=== PATIENT | male | born 1935 | race Caucasian/White ===

== ENCOUNTER 2017-07-31 15:48 | Inpatient (IN) | payer OTHER ==
--- NOTE | 2017-07-31 16:08 | CPEKG ---
Heart Rate: 161 RR Interval: 373 QRSD Interval: 76 QT Interval: 304 QTC Interval: 498 QRS Bourbon: 2 T Wave Bourbon: 69 EKG Severity - ABNORMAL ECG - EKG Impression: ATRIAL FIBRILLATION WITH RAPID V-RATE EKG Impression: LOW VOLTAGE IN FRONTAL LEADS EKG Impression: CONSIDER ANTEROSEPTAL INFARCT EKG Impression: BORDERLINE T ABNORMALITIES, LATERAL LEADS Electronically Signed By: Matt Bowen 31-Jul-2017 16:10:56
[2017-07-31] MEDS ORDERED: DILTIAZEM 125 MG in D5W 125 ML IV ONE (16:09)
[2017-07-31] MEDS ORDERED: ENOXAPARIN 80 MG/0.8 ML SYR SC ONE (16:09)
--- NOTE | 2017-07-31 16:09 | EDPHY ---
H & P Time Seen by Provider: 07/31/17 16:00 HPI/ROS: CHIEF COMPLAINT: Rapid atrial fibrillation HISTORY OF PRESENT ILLNESS: Patient tells me is atrial fibrillation for more than 20 years and takes metoprolol but does not have any anticoagulants. He was at Dr. Burroughs's office today for routine checkup and was noted to be in atrial fibrillation was sent here. Does not have chest pain or palpitations. No dizziness or lightheadedness. He said he was a little bit of short of breath walking from the car to the emergency department. REVIEW OF SYSTEMS: Eye: no change in vision ENT: no sore throat Cardiac: no chest pain or syncope Pulmonary: Not coughing. Abdomen: no vomiting, diarrhea, abdominal pain Musculoskeletal: no back pain , mild bilateral leg swelling Skin: no rash Neuro: no headache Constitutional: no fever : no urinary symptoms A comprehensive 10 point review of systems is otherwise negative aside from elements mentioned in the history of present illness. 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 Eyes: No scleral icterus. ENT, Mouth: Normal mucous membranes. Respiratory: Normal respiratory effort, breath sounds equal, lungs are clear to auscultation. Cardiovascular: Irregularly irregular and tachycardic Gastrointestinal: Abdomen is soft and non tender. Neurological: Alert, face symmetric, normal motor and sensory in extremities. Skin: Warm and dry, no rashes. Musculoskeletal: Mild bilateral peripheral edema. No calf tenderness. Psychiatric: Not agitated. Emergency Department course/MDM: Patient presents in relatively asymptomatic atrial fibrillation with rapid response at 160. Lovenox discussed and consented. IV diltiazem drip started. I do not think he is necessarily candidate for ED conversion as he does not know when he went into it. 1648: Heart rate in the 140's on diltiazem drip, troponin is 0.040, admit for rate control and cycle troponins. 1753: Still on diltiazem drip at 10, heart rate still in the 150s. Smoking Status: Never smoked Constitutional: Initial Vital Signs Temperature (C) 36.9 C 07/31/17 15:53 Heart Rate 165 H 07/31/17 15:53 Respiratory Rate 20 07/31/17 15:53 Blood Pressure 100/81 H 07/31/17 15:53 O2 Sat (%) 94 07/31/17 15:53 O2 Delivery Mode Room Air Allergies/Adverse Reactions: Penicillins Allergy (Verified 07/31/17 15:53) Home Medications: Medication Instructions Recorded Amphet Asp and D/Amphet [Adderall 10 mg PO BID@1200,1600 07/31/17 10 MG (*)] Amphet Asp and D/Amphet [Adderall 20 mg PO DAILY 07/31/17 10 MG (*)] Aspirin EC [Aspirin EC 81 mg (*)] 81 mg PO DAILY 07/31/17 Carbidopa/Levodopa 2 each PO HS 07/31/17 [Carbidopa-Levodopa 25-100 Tab] Metoprolol Succinate Xr [Toprol Xl 100 mg PO DAILY 07/31/17 100 mg (*)] Mirtazapine 15 mg PO HS 07/31/17 Rosuvastatin Calcium [Crestor 20mg 20 mg PO DAILY 07/31/17 (*)] Venlafaxine Xr [Effexor Xr] 300 mg PO DAILY 07/31/17 Zaleplon [ZALEPLON] 5 mg PO HS 07/31/17 oxyCODONE HCL/ACETAMINOPHEN 1 each PO HS PRN 07/31/17 [Percocet 7.5-325 mg Tablet] Medical Decision Making - Diagnostics Imaging Results: Imaging Impressions Chest X-Ray 07/31/17 16:09 Impression: 1. No active cardiopulmonary disease seen. 2. A few fibrotic streaks are noted at the lung bases. Differential Diagnosis: Differential diagnosis considered for narrow complex tachycardia including but not limited to various causes of sinus tachycardia, SVT, atrial flutter and atrial fibrillation. Consult/Admit Bed Type: [place] [address] Critical Care Time: Critical care time spent by me, Dr. Bowen, exclusively with the care of this patient was 30 minutes, exclusive of PA or [employer]BLER time and exclusive of separate procedures. The organ system at risk was cardiovascular and I ordered IV diltiazem, multiple diagnostics, fluid bolus, and anticoagulation to stabilize the patient and prevent worsening of the patient's condition. - Data Points Laboratory Results: Laboratory Results 07/31/17 16:11 07/31/17 16:11 07/31/17 07/31/17 16:11 16:11 WBC 6.69 10^3/uL 10^3/uL (3.80-9.50) RBC 5.50 10^6/uL 10^6/uL (4.40-6.38) Hgb 16.5 g/dL g/dL (13.7-17.5) Hct 50.3 % % (40.0-51.0) MCV 91.5 fL fL (81.5-99.8) MCH 30.0 pg pg (27.9-34.1) MCHC 32.8 g/dL g/dL (32.4-36.7) RDW 15.1 % % (11.5-15.2) Plt Count 219 10^3/uL 10^3/uL (150-400) MPV 10.4 fL fL (8.7-11.7) Neut % (Auto) 64.1 % % (39.3-74.2) Lymph % (Auto) 22.0 % % (15.0-45.0) [place]rens % (Auto) 8.7 % % (4.5-13.0) Eos % (Auto) 4.2 % % (0.6-7.6) Baso % (Auto) 0.6 % % (0.3-1.7) Nucleat RBC Rel Count 0.0 % % (0.0-0.2) Absolute Neuts (auto) 4.29 10^3/uL 10^3/uL (1.70-6.50) Absolute Lymphs (auto) 1.47 10^3/uL 10^3/uL (1.00-3.00) Absolute Monos (auto) 0.58 10^3/uL 10^3/uL (0.30-0.80) Absolute Eos (auto) 0.28 10^3/uL 10^3/uL (0.03-0.40) Absolute Basos (auto) 0.04 10^3/uL 10^3/uL (0.02-0.10) Absolute Nucleated RBC 0.00 10^3/uL 10^3/uL (0-0.01) Immature Gran % 0.4 % % (0.0-1.1) Immature Gran # 0.03 10^3/uL 10^3/uL (0.00-0.10) Sodium 140 mEq/L mEq/L (135-145) Potassium 3.9 mEq/L mEq/L (3.5-5.2) Chloride 105 mEq/L mEq/L (97-110) Carbon Dioxide 23 mEq/l mEq/l (22-31) Anion Gap 12 mEq/L mEq/L (8-16) BUN 37 mg/dL H mg/dL (7-23) Creatinine 1.2 mg/dL mg/dL (0.7-1.3) Estimated GFR 58 Glucose 131 mg/dL H mg/dL (70-100) Calcium 9.5 mg/dL mg/dL (8.5-10.4) Troponin I 0.040 ng/mL H ng/mL (0.000-0.034) Medications Given: Discontinued Medications Enoxaparin Sodium (Lovenox) 80 mg SC EDNOW ONE Stop: 07/31/17 16:10 Last Admin: 07/31/17 16:31 Dose: 80 mg Diltiazem HCl 125 mg/ Dextrose 125 mls @ 0 mls/hr IV EDNOW ONE; As Directed PRN Reason: Protocol Stop: 07/31/17 16:10 Last Admin: 07/31/17 16:36 Dose: 125 mls Sodium Chloride (Ns) 500 mls @ 0 mls/hr IV EDNOW ONE; Wide Open PRN Reason: Protocol Stop: 07/31/17 16:13 Last Admin: 07/31/17 16:37 Dose: 500 mls Departure - Departure Disposition: [facility] Acute Clinical Impression: Atrial fibrillation Qualifiers: Atrial fibrillation type: unspecified Qualified Code(s): I48.91 - Unspecified atrial fibrillation Condition: Good
[2017-07-31] MEDS ORDERED: NS 500 ML IV ONE (16:12)
[2017-07-31 16:18] LABS: PLATELET COUNT 219 10^3/uL (150-400)
[2017-07-31] MEDS ORDERED: ACETAMINOPHEN 325 MG TAB PO PRN (17:45)
[2017-07-31] MEDS ORDERED: ONDANSETRON DISINTEGRATING 4 MG TAB PO PRN (17:45)
[2017-07-31] MEDS ORDERED: ONDANSETRON 4 MG/2 ML VIAL IVP PRN (17:45)
[2017-07-31] MEDS ORDERED: NON-FORMULARY NEW DRUG (Oxycodone Hcl/Acetaminophen [Percocet 7.5-325 Mg Tablet] 1 EACH) PO PRN (17:47)
[2017-07-31] MEDS ORDERED: DILTIAZEM 125 MG in D5W 125 ML IV SCH (18:00)
--- NOTE | 2017-07-31 18:31 | GHP ---
[f rep st] HISTORY AND PHYSICAL DATE OF ADMISSION: 07/31/2017 HISTORY OF PRESENT ILLNESS: The patient is a pleasant 81-year-old gentleman with history of atrial f ibrillation and ADHD who went to his primary care physician for medication refill which included Topr ol-XL. At that point, he was found to have a heart rate of 130 and referred to the emergency departm ent. The patient denies chest pain, palpitations, and shortness of breath. He has some lower extrem ity edema that is chronic. He feels it is a bit worse. He has not been orthopneic. He gets dyspnei c on exertion but perhaps no worse than usual. 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 He does take Adderall 3 times daily. I think he has been on this for a bit of time. He drinks alcoh ol daily, unclear if it is to excess. No fever or chills. No sputum. No nausea, vomiting, diarrhea. No chest pain. REVIEW OF SYSTEMS: Complete 10-point review of systems conducted, negative except as noted in the HP I. PAST MEDICAL HISTORY: 1. ADHD. 2. Atrial fibrillation. 3. Likely parkinsonism. 4. Depression. 5. Pain. 6. Hyperlipidemia. ALLERGIES: Penicillin. MEDICATIONS: Adderall 10 at noon and 4 p.m. and 20 mg in the morning. Toprol-XL 100, enteric-coated aspirin, carbidopa-levodopa 2 tabs at night, mirtazapine, Percocet, rosuvastatin, venlafaxine, zalep diamond. 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 Daily alcohol. Nonsmoker. FAMILY HISTORY: Parents . PHYSICAL EXAMINATION: VITAL SIGNS: Temp 37, blood pressure 100/81, pulse 165, breathing 20 times a minute, 94% on room air. GENERAL: No acute distress. HEENT: Sclerae anicteric. Oropharynx clear. Mucous membranes moist. NECK: Supple. No lymphadenopathy or JVD. LUNGS: Clear to auscultation bilaterally. HEART: S1, S2. Tachycardic. Irregularly irregular. ABDOMEN: Soft, nontender, nondistended. EXTREMITIES: Lower extremities showed 2+ edema bilaterally. Calves are nontender. SKIN: Without rash. NEUROLOGIC: Grossly nonfocal. LABORATORY DATA: Sodium 140, potassium 3.9, chloride 105, bicarb 22, BUN 37, creatinine 1.2, glucose 131. Troponin 0.040. White count 6.7, hematocrit 50, platelets 219,000. Chest x-ray, interpreted by me, shows no acute cardiopulmonary disease. EKG shows atrial fibrillatio n at 161 with normal axis and intervals. No ST or T-wave changes. I have discussed the case with Dr Shanelle Bowen. ASSESSMENT AND PLAN: An 81-year-old gentleman who presents with asymptomatic rapid atrial fibrillati on. 1. Atrial fibrillation. I suspect he has been rapid for a period of time given his increasing lower extremity edema, dyspnea on exertion, and asymptomatic nature. I will give him Toprol-XL 150 now an d continue him on a diltiazem drip. We will check an echocardiogram. We will have Cardiology see hi m in the morning. 2. Adderall therapy. I wonder if this is contraindicated in his atrial fibrillation. I will hold i t now. 3. Alcohol use. The patient does appear to be in withdrawal. I think he probably has moderate yanni y alcohol use. 4. Hyperlipidemia. Continue statin. DISPOSITION: Observation status. /[id number]/MODL
[2017-07-31] MEDS ORDERED: OXYCODONE/APAP 5/325 TAB PO PRN (18:41)
[2017-07-31] MEDS: CARBIDOPA/LEVODOPA 25 MG/100 MG TAB PO SCH (20:14)
[2017-07-31] MEDS: MIRTAZAPINE 15 MG TAB PO SCH (20:14)
[2017-07-31] MEDS: METOPROLOL SUCCINATE XR 100 MG TAB PO SCH (20:26)
[2017-07-31] MEDS ORDERED: NON-FORMULARY NEW DRUG (Mirtazapine [Mirtazapine] 15 MG) PO SCH (21:00)
[2017-07-31] MEDS ORDERED: ZALEPLON 5 MG PO SCH (21:00)
[2017-07-31] MEDS: TEMAZEPAM 15 MG CAP PO SCH (22:33)
[2017-08-01] MEDS ORDERED: ENOXAPARIN 80 MG/0.8 ML SYR SC SCH (07:00)
[2017-08-01] MEDS: METOPROLOL SUCCINATE XR 100 MG TAB PO SCH (08:52)
[2017-08-01] MEDS: VENLAFAXINE XR 150 MG CAP PO SCH (08:53)
[2017-08-01] MEDS: ROSUVASTATIN CALCIUM 20 MG TAB PO SCH (08:54)
[2017-08-01] MEDS: ASPIRIN EC 81 MG TAB PO SCH (08:54)
[2017-08-01] MEDS: OXYCODONE/APAP 5/325 TAB PO PRN ×3 (09:17→20:54)
--- NOTE | 2017-08-01 10:37 | ASMTCASEMG ---
Living Arrangements What is your living Answers: With Other (Not Family) arrangement? Who do you live with? Type Of Residence What kind of residence do Answers: House you live in? Discharge Plan Comments Coordination Status Comments Notes: Pt is a 81 y/o man admitted for Afib and ADHD. Pt drinks daily and takes adderall 3x/day. Pt will have an echo at some point. Pt will most likely d/c independent when medically stable. No therapies ordered at this time. CM available for changes. Plan: Independent Date Signed: 08/01/2017 10:36 AM Electronically Signed By:MICHELLE Couch
--- NOTE | 2017-08-01 10:41 | ECHO ---
[email or web address] [address] [address] Main: [phone] Fax: Transthoracic Echocardiogram Name: VINNIE SWIFT MR#: [id number] Study Date: 08/01/2017 Study Time: 07:17 AM Date of : 1935 Age: 81 year(s) Height: 182.9 cm (72 in.) Weight: 88.91 kg (196 lb.) BSA: 2.11 m2 Gender: Male Examination: Echo Indication: New onset A-fib Image Quality: Contrast: Requested by: Chacho Spring BP: 122 mmHg/98 mmHg Heart Rate: Rhythm: Atrial fibrillation Indication: New onset A-fib Procedure Staff Environmental Epidemiologist: Corona Romero RDCS Reading Physician: Анан Araujo MD Requesting Provider: Chacho Spring Conclusions: Moderately to severely dilated left ventricle. No LV hypertrophy. Severely reduced systolic LV function. The ejection fraction is estimated to be 15-20 %. There is moderate to severe global hypokinesis. The rhythm is atrial fibrillation. Normal size right ventricle. Normal RV function. The left atrium is severely dilated. The right atrium is severely dilated. Mild to moderate mitral regurgitation. Mild aortic valve regurgitation is present. Mild to moderate tricuspid valve regurgitation. The pulmonary artery pressure is normal. No prior echo Measurements: Chambers Valvular Assessment AV/MV Valvular Assessment TV/PV Normal Normal Normal Name Value Range Name Value Range Name Value Range Ao Samara (MM): 3.9 cm (2.2 cm-3.7 AV Vmax: 1.21 m/s (1 m/s-1.7 TR Vmax: 2.81 mm/s ( - ) cm) m/s) TR PGmax: 32 mmHg ( - ) IVSd (2D): 0.8 cm (0.6 cm-1.1 AV maxP mmHg ( - ) syst. PAP: 37 mmHg ( - ) cm) LVOT Vmax: 0.56 m/s (0.7 m/s-1.1 LVDd (2D): 6.2 cm (4.2 cm-5.9 m/s) cm) AR (PHT): 773 ms ( - ) LVDs (2D): 5.4 cm (2.1 cm-4 MV E Vmax: 0.70 m/s ( - ) cm) LVPWd (2D): 1.1 cm (0.6 cm-1 cm) LVEF (BP): 19 % (>=55 %) Patient: VINNIE SWIFT Study Date: 08/01/2017 Page 1 of 2 07:17 AM EF Range: 15-20 % Continued Measurements: Chambers Valvular Assessment AV/MV Valvular Assessment TV/PV Name Value Name Value Name Value LADs Lon.0 cm MV E' Septal: 0.05 m/s CVP (est.): 5 mmHg LA Area: 27.3 cm2 MV E/E' Septal: 13.30 LA Volume: 99 ml AR Vmax: 2.85 cm/s LA Volume Index: 46.9 ml/m2 Findings: Left Ventricle: Moderately to severely dilated left ventricle. No LV hypertrophy. Severely reduced systolic LV function. The ejection fraction is estimated to be 15-20 %. Diastolic dysfunction is present. . There is moderate to severe global hypokinesis. The rhythm is atrial fibrillation. Right Ventricle: Normal size right ventricle. Normal RV function. Left Atrium: The left atrium is severely dilated. Right Atrium: The right atrium is severely dilated. Mitral Valve: The mitral valve is normal in appearance. Mild to moderate mitral regurgitation. Aortic Valve: Mild aortic cusp calcification is noted. No aortic valve stenosis is present. Mild aortic valve regurgitation is present. Tricuspid Valve: The tricuspid valve appears normal. Mild to moderate tricuspid valve regurgitation. The pulmonary artery pressure is normal. Right heart pulmonary pressure may be underestimated due to low heart function.. Pulmonic Valve: The pulmonic valve is normal in appearance and function. Aorta: The aorta is normal. Pericardium: No pericardial effusion. No echocardiographic evidence of hemodynamic compromise. (No Signature Object) Patient: VINNIE SWIFT Study Date: 08/01/2017 Page 2 of 2 07:17 AM [id number]
[2017-08-01] MEDS: LISINOPRIL 2.5 MG TAB PO SCH (11:14)
[2017-08-01] MEDS ORDERED: NS 1,000 ML IV ONE (11:55)
[2017-08-01] MEDS ORDERED: ATROPINE SULFATE 1 MG/10 ML SYR IVP ONE (11:55)
[2017-08-01] MEDS ORDERED: APIXABAN 5 MG TAB PO SCH (12:00)
[2017-08-01 13:39] LABS: INR 1.18 (0.83-1.16); PROTIME(PATIENT) 15.2 SEC (12.0-15.0)
--- NOTE | 2017-08-01 13:42 | HOSPPROG ---
Hospitalist Progress Note Assessment/Plan: * Rapid afib -to KATELYN/cardioversion today - d/w Dr. Gayle De La Vega started -continue metoprolol * Acute systolic CHF - EF 15% -likely due to rapid rates -consider non-invasive ischemic eval -IV lasix -starting lisinopril * CAD/distant stent * ADHD -Adderall * Parkinson's -Sinemet * Chronic LBP with continuous narcotic dependency -Percocet 4x day Subjective: No new complaints. Objective: Vital Signs Temp Pulse Resp BP Pulse Ox 36.4 C 78 14 99/66 L 97 08/01/17 11:20 08/01/17 11:20 08/01/17 11:20 08/01/17 11:20 08/01/17 11:20 07/31/17 08/01/17 08/02/17 05:59 05:59 05:59 Intake Total 100 Balance 100 ECHO - EF 15% Laboratory Tests 07/31/17 07/31/17 07/31/17 16:11 19:12 23:18 Creatinine Troponin I 0.040 H 0.038 H 0.034 TSH 08/01/17 04:00 Creatinine 1.1 Troponin I TSH 1.490 CXR - negative - Physical Exam Constitutional: no apparent distress, appears nourished, not in pain Cardiovascular: regular rate and rhythym, tachycardia, edema (1+) Respiratory: no respiratory distress, no rales or rhonchi, clear to auscultation Gastrointestinal: normoactive bowel sounds, soft, non-tender abdomen, no palpable masses Skin: no rashes or abrasions, no fluctuance, no induration Neurologic: AAOx3, sensation intact bilaterally Psychiatric: interacting appropriately, not anxious, not encephalopathic, thought process linear ICD10 Worksheet Patient Problems: Problems Problem Status Onset Atrial fibrillation Acute
--- NOTE | 2017-08-01 13:59 | GCON ---
[f rep st] CONSULTATION CARDIOLOGY CONSULTATION DATE OF CONSULTATION: 08/01/2017 PRIMARY MANAGER ER: Dr. Ethel Perez at the [facility]. CHIEF COMPLAINT: Atrial fibrillation and heart failure. HISTORY OF PRESENT ILLNESS: We were asked by Dr. English, to visit with this patient. The patient is an 81-year-old male with a history of allegedly paroxysmal atrial fibrillation. He has not been on a nticoagulation therapy due to perceived fall risk. He has a remote history of stenting to the LAD, b ack in 2005. I spent quite a bit of time reviewing his past records and discussing his history with Dr. Sanchez's nurse, as we do not have any records in our system since 2011. Other history includes parkinsonism and chronic renal insufficiency. The patient was sent from Dr. Sanchez's office yesterday to the ER with atrial fibrillation and rapi d ventricular response. He was admitted to the medicine service. He was initially started on a dilt iazem drip, but I discontinued that when his ejection fraction showed 10%. He is already on oral met oprolol as an outpatient. Upon my evaluation, reports feeling dyspneic, especially with lying down and exertion, for the past s everal months. He also reports a year of bilateral lower extremity edema that is mild. He has not h ad angina. He has not had syncope. He does not particularly notice palpitations. He has never been told that he has heart failure. He denies any major bleeding history and reports that he has not fa llen at home. REVIEW OF SYSTEMS: He is having sciatic pain. Otherwise, a full 10-point review of systems was perf ormed and was negative except that which is outlined in the history of present illness. ALLERGIES: Penicillin. PAST MEDICAL HISTORY: 1. Atrial fibrillation. 2. New diagnosis of cardiomyopathy. 3. Chronic renal insufficiency. 4. Coronary disease with a remote history of LAD PCI. 5. Parkinsonism. 6. Dyslipidemia. 7. Attention deficit hyperactivity disorder. 8. Depression. SURGICAL HISTORY: 1. Lumbar laminectomy. 2. Bilateral total knee replacement. OUTPATIENT MEDICATIONS: Toprol-XL 100 mg daily, Adderall, aspirin 81 mg daily, Sinemet, Remeron, per cocet, Crestor 20 mg daily, Effexor, and Zaleplon. SOCIAL HISTORY: The patient lives alone, but the woman who owns the house lives upstairs. He report s that he has an ex-, but that "all his children are ." He does not smoke cigarettes. He dr inks 1-2 alcoholic beverages weekly. FAMILY HISTORY: Not applicable to the current case. PHYSICAL EXAM: VITAL SIGNS: Blood pressure 99/66, heart rate is 78 and controlled atrial fibrillati on. Oxygen saturation 97% on 2 L nasal cannula. He is afebrile. GENERAL: Older, slightly ill-appe aring male in no acute distress. HEENT: Sclerae are clear. No jaundice. Mucous membranes are mois t. CARDIOVASCULAR: JVP is 12 cm of water with the patient sitting at 90 degrees. Carotids equal an d 2+ without bruit, irregularly irregular rhythm. Soft early systolic murmur at the apex. Soft lauren y systolic murmur at the left lower sternal border. No S3. No rub. LUNGS: Minimal bibasilar rales . No wheezes or rhonchi. ABDOMEN: Soft, nontender, nondistended, without bruits, masses, or hepato splenomegaly. EXTREMITIES: Warm and well perfused with trace bilateral ankle edema. NEURO: Alert and oriented x3 without gross focal neurologic deficits. Appropriate mood and affect. LABORATORY DATA: CBC is normal. Basic metabolic panel is normal except for a BUN of 35. Creatinine is 1.1, glucose 112. His initial troponin was 0.04, 0.038, and then a 3rd troponin was normal at 0. 034. BNP is 4220. TSH is normal at 1.49. EKG reviewed by me shows atrial fibrillation with rapid ventricular response at 161 beats per minute. Lateral T-wave flattening to slight inversion. Echocardiogram reviewed by me: The LV is moderatel y to severely dilated. The left ventricular ejection fraction is severely depressed at 15% to 20% wi th global hypokinesis. Severe biatrial dilation. Uhlp-vo-vhlheaem mitral regurgitation. Mild aorti c regurgitation. [id number] tricuspid regurgitation with normal estimated pulmonary pressure. Chest x-ray reviewed by me shows no acute cardiopulmonary process. ASSESSMENT AND PLAN: This is an 81-year-old male with past history of paroxysmal atrial fibrillation , now presents with atrial fibrillation, rapid ventricular response, systolic heart failure that is l ikely an acute on chronic issue. 1. Atrial fibrillation: It is likely that much of his heart failure is driven by poorly controlled atrial fibrillation. I had a long discussion with the patient about the risks, benefits, alternative s of KATELYN-guided cardioversion today. I also explained that he would require at least 4 weeks of unin terrupted systemic anticoagulation with Eliquis post cardioversion. He understands this and agrees t o proceed. This will be scheduled for later today. Continue Toprol. The diltiazem has been stopped , and is not an ideal medication for him given his LV systolic dysfunction. TSH is normal. We will initiate Eliquis 5 mg b.i.d. 2. Cardiomyopathy: Acute on chronic systolic heart failure. He appears mildly volume overloaded. We will start IV Lasix. I have added low-dose DHRUV inhibitor as well. Continue his Toprol. 3. History of coronary disease: He has not had angina. His troponin was only minimally elevated, m ore likely due to demand ischemia in the setting of his rapid atrial fibrillation and not an acute co ronary syndrome. He could have further risk stratification with an outpatient nuclear stress test, b ut at this point, I would not pursue coronary angiogram. 4. Dyslipidemia: Continue Crestor. 5. History of chronic renal insufficiency: Creatinine 1.1 here. Follow closely, especially in the setting of diuresis. 6. Parkinsonism and possible fall risk: He reports no falls at home. He will have a PT assessment. Again, we need to be careful with this in the setting of anticoagulation. Thank you for allowing us to participate in this patient's care. We will follow with you. /[id number]/MODL
--- NOTE | 2017-08-01 14:13 | CPEKG ---
Heart Rate: 93 RR Interval: 645 QRSD Interval: 86 QT Interval: 368 QTC Interval: 458 QRS Kirkland: 62 T Wave [place]: 48 EKG Severity - ABNORMAL ECG - EKG Impression: ATRIAL FIBRILLATION EKG Impression: CONSIDER ANTEROSEPTAL INFARCT EKG Impression: BORDERLINE T ABNORMALITIES, LATERAL LEADS Electronically Signed By: Harshal Lewis 01-Aug-2017 17:01:50
--- NOTE | 2017-08-01 15:06 | PDANEPAE ---
ANE History of Present Illness 81 yo for eugene/cv ANE Past Medical History - Cardiovascular History Hx Hypertension: Yes Hx Arrhythmias: Yes Hx Coronary Artery / Peripheral Vascular Disease: Yes Hx CHF / Valvular Disease: Yes - Pulmonary History Hx Oxygen in Use at Home: Yes O2 in Use at Home (L/minute): 2 Hx Sleep Apnea: No - Endocrine History Hx Diabetes: No - Chronic Pain History Chronic Pain: Yes ANE Review of Systems Review of Systems: - Exercise capacity METS (RN): 1 METS ANE Patient History - Allergies Allergies/Adverse Reactions: Penicillins Allergy (Verified 07/31/17 15:53) - Home Medications Home medications: home medication list seen and reviewed Home Medications: Amphet Asp and D/Amphet [Adderall 10 MG (*)] 10 mg PO BID@1200,1600 07/31/17 [ Last Taken 07/30/17] Amphet Asp and D/Amphet [Adderall 10 MG (*)] 20 mg PO DAILY 07/31/17 [Last Taken 07/30/17] Aspirin EC [Aspirin EC 81 mg (*)] 81 mg PO DAILY 07/31/17 [Last Taken 07/30/17] Carbidopa/Levodopa [Carbidopa-Levodopa 25-100 Tab] 2 each PO HS 07/31/17 [Last Taken 07/30/17] Metoprolol Succinate Xr [Toprol Xl 100 mg (*)] 100 mg PO DAILY 07/31/17 [Last Taken 07/30/17] Mirtazapine 15 mg PO HS 07/31/17 [Last Taken 07/30/17] Rosuvastatin Calcium [Crestor 20mg (*)] 20 mg PO DAILY 07/31/17 [Last Taken ] Venlafaxine Xr [Effexor Xr] 300 mg PO DAILY 07/31/17 [Last Taken 07/30/17] Zaleplon [ZALEPLON] 5 mg PO HS 07/31/17 [Last Taken 07/30/17] oxyCODONE HCL/ACETAMINOPHEN [Percocet 7.5-325 mg Tablet] 1 each PO QID PRN 07/31 [Last Taken 07/30/17] - Smoking Hx Smoking Status: Former smoker ANE Labs/Vital Signs - Labs Result Diagrams: 07/31/17 16:11 08/01/17 12:31 - Vital Signs Blood Pressure: 99/66 Heart Rate: 78 Respiratory Rate: 14 O2 Sat (%): 97 Height: 6 ft Weight: 89.8 kg ANE Physical Exam - Airway Neck exam: FROM Mallampati Score: Class 2 Mouth exam: normal dental/mouth exam, millan - Pulmonary Pulmonary: no respiratory distress, inspiratory crackles - Cardiovascular Cardiovascular: irregularly irregular ANE Anesthesia Plan Anesthesia Plan: MAC
--- NOTE | 2017-08-01 15:27 | PDMN ---
Medical Necessity Medical necessity: change to IP; los>2mn for rapid afib, and acute systolic CHF ; requires KATELYN/CV, initiate Eliquis and Lisinopril, IV Lasix; comorbid CAD/ stents, ADHD, Parkinson's and chronic LBP on narcotics; per order and progress note 08/01/17
[2017-08-01] MEDS ORDERED: PROPOFOL 200 MG/20 ML VIAL ONE (15:37)
--- NOTE | 2017-08-01 15:41 | PDHPUP ---
History & Physical Update H&P update statement: This history and physical update is based on an assessment of the patient which was completed after admission or registration (within 24 hours), but prior to the surgery/procedure. H&P update: H&P reviewed & patient examined, no change in patient's condition since H&P completed
[2017-08-01] MEDS ORDERED: ATROPINE SULFATE 1 MG/10 ML SYR ONE (15:49)
--- NOTE | 2017-08-01 15:56 | ASMTCMCOM ---
CM Note CM Note Notes: Pts case discussed in morning rounds. Dr. Araujo had concerns regarding pts ability to d/c home. Therapies have been ordered and awaiting recommendations. Needs are TBD at this time. CM to follow. Plan: TBD Date Signed: 08/01/2017 03:55 PM Electronically Signed By:MICHELLE Couch
--- NOTE | 2017-08-01 16:17 | POSTANESTH ---
Post Anesthetic Evaluation Cardiovascular Status: Normal, Stable Respiratory Status: Normal, Stable Level of Consciousness/Mental Status: Can Participate in Eval Pain Control: Adequate, Prn Tx Ordered Nausea/Vomiting Control: Adequate, Prn Tx Ordered Complications Possibly Related to Anesthesia: None Noted
[2017-08-01] MEDS: FUROSEMIDE 40 MG/4 ML VIAL IVP SCH ×2 (17:06→17:30)
[2017-08-01] MEDS: ADDERALL 10 MG TAB PO SCH (17:07)
--- NOTE | 2017-08-01 17:36 | ECHO ---
[email or web address] [address] Main: [phone] Fax: Transesophageal Echocardiography Name: VINNIE SWIFT MR#: [id number] Study Date: 08/01/2017 Study Time: 02:59 PM Date of : 1935 Age: 81 year(s) Height: ( ) Weight: ( ) BSA: Gender: Male Examination: KATELYN Indication: r/o clot pre cardioversion Image Quality: Contrast: I.V. dose of agitated saline Requested by: Анна Araujo Heart Rate: Rhythm: BP: / Procedure Staff Engineering Department Chair: Yessica Arias [facility] Reading Physician: Анна Araujo MD Requesting Provider: KATELYN Exam Details Contrast: I.V. dose of agitated saline Conclusions: Moderately dilated left ventricle. Severely reduced systolic LV function. The ejection fraction is estimated to be 5-10 %. No thrombus in left ventricle. Moderately dilated right ventricle. Severely reduced RV function. The left atrium is severely dilated. An agitated saline study was performed and was negative for intracardiac shunting. Possible thrombus in left appendage. Possible mural thrombus along the posterior wall of RA near RAA. Mild to moderate mitral regurgitation. Mild aortic valve regurgitation is present. Moderate tricuspid regurgitation is present. Measurements: Chambers Valvular Assessment AV/MV Valvular Assessment TV/PV Normal Normal Normal Name Value Range Name Value Range Name Value Range EF Range: 5-10 % TR Vmax: 2.19 mm/s ( - ) TR PGmax: 19 mmHg ( - ) Additional Measurements: Patient: VNINIE SWIFT Study Date: 08/01/2017 Page 1 of 2 02:59 PM Findings: Left Ventricle: Moderately dilated left ventricle. Severely reduced systolic LV function. The ejection fraction is estimated to be 5-10 %. No thrombus in left ventricle. Right Ventricle: Moderately dilated right ventricle. Severely reduced RV function. Left Atrium: The left atrium is severely dilated. An agitated saline study was performed and was negative for intracardiac shunting. Left Atrial Appendage: Slight color flow doppler in the left atrial appendage. Possible thrombus in left appendage. Right Atrium: Right atrial enlargement. Possible mural thrombus along the posterior wall of RA near RAA. Mitral Valve: There is mild thickening of the mitral valve leaflets. Mild to moderate mitral regurgitation. Aortic Valve: The aortic valve is tri-leaflet. Mild aortic valve regurgitation is present. Tricuspid Valve: The tricuspid valve appears normal. Moderate tricuspid regurgitation is present. Pulmonic Valve: The pulmonic valve is normal in appearance and function. Trivial pulmonic valve regurgitation. l1n (No Signature Object) Patient: VINNIE SWIFT Study Date: 08/01/2017 Page 2 of 2 02:59 PM [id number]
[2017-08-01] MEDS: CARBIDOPA/LEVODOPA 25 MG/100 MG TAB PO SCH (20:53)
[2017-08-01] MEDS: MIRTAZAPINE 15 MG TAB PO SCH (20:54)
[2017-08-01] MEDS: APIXABAN 5 MG TAB PO SCH (20:54)
[2017-08-01] MEDS: TEMAZEPAM 15 MG CAP PO SCH (23:07)
[2017-08-02 04:35] LABS: PLATELET COUNT 162 10^3/uL (150-400)
[2017-08-02] MEDS: FUROSEMIDE 40 MG/4 ML VIAL IVP SCH ×2 (08:44→19:37)
[2017-08-02] MEDS: ROSUVASTATIN CALCIUM 20 MG TAB PO SCH (08:44)
[2017-08-02] MEDS: APIXABAN 5 MG TAB PO SCH (08:44)
[2017-08-02] MEDS: LISINOPRIL 2.5 MG TAB PO SCH (08:44)
[2017-08-02] MEDS: VENLAFAXINE XR 150 MG CAP PO SCH (08:44)
[2017-08-02] MEDS: ASPIRIN EC 81 MG TAB PO SCH (08:44)
[2017-08-02] MEDS: METOPROLOL SUCCINATE XR 100 MG TAB PO SCH (08:47)
[2017-08-02] MEDS: ADDERALL 10 MG TAB PO SCH ×3 (08:47→15:54)
[2017-08-02] MEDS ORDERED: TEMAZEPAM 15 MG CAP PO PRN (10:59)
[2017-08-02] MEDS ORDERED: NITROGLYCERIN 0.4 MG BTL SL PRN (10:59)
[2017-08-02] MEDS ORDERED: ACETAMINOPHEN 325 MG TAB PO PRN (10:59)
--- NOTE | 2017-08-02 11:11 | SOAPPROG ---
SOAP Progress Note Assessment/Plan: Assessment: 1. Coronary artery disease 2. 4 chamber dilated cardiomyopathy 3. Acute on chronic heart failure with reduced ejection fraction 4. History of stent in 2006/LAD 5. Unreliable history regarding question of prior myocardial infarction moderate mitral regurgitation 6.Mild aortic insufficiency 7.Mild tricuspid regurgitation 8.Dyspnea on exertion 9.Atrial fibrillation with rapid ventricular response. 10. Memory loss 11. Hypertension 12. Dyslipidemia This gentleman comes in the hospital with heart failure symptoms and ejection fraction in the range of 10% a dilated cardiomyopathy with valvular heart disease that is not too severe. He has known coronary artery disease in the past he had him stent placed in his LAD in 2005 according to the records. His own memory is a problem he told me he was not sure if he ever had a heart attack but he thinks he might have could not remember that he had a stent. I have asked him other questions about things I would think he would know and he is really not able to answer very well could not tell me why he came to the hospital. 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 I am not clear how good his memory is and whether not he actually qualifies as having dementia. I do think the history is unreliable. At this time he is being treated for his heart failure and he was going to be cardioverted but was found to have clot on transesophageal echocardiogram which made it impossible to do cardioversion. He has been on Eliquis. Because of his severe cardiomyopathy his rapid heart rate his history of coronary disease and because he is very viable and living alone and active think we should proceed with coronary angiography rather than noninvasive testing. We can do that on Friday and he is willing to do that and accepts the risks associated with the procedure. He would like to get a definitive answer of possible as to why his heart is deteriorated and certainly wants to be treated for coronary disease in case he needs invasive treatments. In the meantime he will be treated for coronary artery disease dyslipidemia atrial fibrillation with full anticoagulation. I am stopping his Eliquis and 12 hr later were going to start heparin with no bolus and continue the heparin until coronary angiography. Does not smoke cigarettes. He does drink alcohol several times a week and he does smoke marijuana on what might be a daily basis some not clear of that story. Also to summarize his cardiac risk factors positive for known coronary disease, hypertension, hyperlipidemia and for a family history of premature coronary artery disease. At this point he denies to me smoking cigarettes diabetes mellitus hyperuricemia and a history of obesity. I have answered all his questions. And discussed his case with Dr. English Plan: 08/02/17 11:14 08/02/17 11:17 Subjective: He feels well today. He has no shortness of breath when he is not doing anything. He is sometimes uncomfortable lying flat. He has no chest pain chest tightness jaw pain arm pain He has no nausea vomiting or diarrhea He has no fever chills He is taking his medications. He seems to have some difficulty with memory as he can't remember why he came into the hospital. Can't remember if he has ever had heart attack. When I asked him if he had a stent he says no. He also is not sure of the training he had at the [employer] [facility]. He tells me he does not have high blood pressure or high cholesterol and is on medication for both things. Objective: Vital Signs Temp Pulse Resp BP Pulse Ox 36.3 C 85 16 109/78 93 08/02/17 08:00 08/02/17 08:00 08/02/17 08:00 08/02/17 08:00 08/02/17 08:00 Laboratory Results 08/02/17 04:16 08/02/17 04:16 08/01/17 08/02/17 08/03/17 05:59 05:59 05:59 Intake Total 400 Output Total 1000 Balance -600 PT 15.2 SEC (12.0-15.0) H 08/01/17 12:31 INR 1.18 (0.83-1.16) H 08/01/17 12:31 Laboratory Tests 07/31/17 07/31/17 08/01/17 19:12 23:18 04:00 Troponin I 0.038 H 0.034 NT-Pro-B Natriuret Pep TSH 1.490 08/01/17 04:00 Troponin I NT-Pro-B Natriuret Pep 4220 H TSH Physical Exam - Physical Exam General Appearance: alert Neck: non-tender (He is doing a list of) Respiratory: crackles (This could denies house ago), prolonged expiration Cardiac/Chest: edema, JVD, systolic murmur (The year ago there are issues), irregularly irregular (He is previous a) Abdomen: non-tender, soft, No organomegaly Skin: warm/dry (Could really glad Hatch given I think all) Extremities: non-tender, No calf tenderness Neuro/Psych: normal mood/affect ICD10 Worksheet Patient Problems: Problems Problem Status Onset Atrial fibrillation Acute
[2017-08-02] MEDS: OXYCODONE/APAP 5/325 TAB PO PRN ×2 (12:11→23:27)
--- NOTE | 2017-08-02 15:43 | HOSPPROG ---
Hospitalist Progress Note Assessment/Plan: * Rapid afib -no cardioversion due to LA/RA thrombus -Eliquis started -continue metoprolol * LA/RA thrombus -change to IV heparin for cath Friday * Acute systolic CHF - EF 5% -cardiac cath Friday -PO lasix, low dose lisinopril * CAD/distant stent * ADHD -Adderall * Parkinson's -Sinemet * Chronic LBP with continuous narcotic dependency -Percocet 4x day Subjective: feeling good Objective: Vital Signs Temp Pulse Resp BP Pulse Ox 36.8 C 107 H 14 83/66 L 94 08/02/17 15:06 08/02/17 15:06 08/02/17 15:06 08/02/17 15:06 08/02/17 15:06 Laboratory Results 08/02/17 04:16 08/02/17 04:16 08/01/17 08/02/17 08/03/17 05:59 05:59 05:59 Intake Total 400 480 Output Total 1000 1000 Balance -600 -520 PT 15.2 SEC (12.0-15.0) H 08/01/17 12:31 INR 1.18 (0.83-1.16) H 08/01/17 12:31 tele reviewed - afib, still rapid at times d/w Dr. Locke - cath friday - Physical Exam Constitutional: no apparent distress, appears nourished, not in pain Cardiovascular: regular rate and rhythym, no murmur, rub, or gallop Respiratory: no respiratory distress, no rales or rhonchi, clear to auscultation Gastrointestinal: normoactive bowel sounds, soft, non-tender abdomen, no palpable masses Skin: no rashes or abrasions, no fluctuance, no induration Neurologic: AAOx3, sensation intact bilaterally Psychiatric: interacting appropriately, not anxious, not encephalopathic, thought process linear ICD10 Worksheet Patient Problems: Problems Problem Status Onset Atrial fibrillation Acute
[2017-08-02 17:38] LABS: INR 1.26 (0.83-1.16)
[2017-08-02] MEDS: CARBIDOPA/LEVODOPA 25 MG/100 MG TAB PO SCH (19:38)
[2017-08-02] MEDS: MIRTAZAPINE 15 MG TAB PO SCH (19:39)
[2017-08-02] MEDS ORDERED: HEPARIN/DEXTROSE 500 ML IV SCH (20:44)
[2017-08-02] MEDS: TEMAZEPAM 15 MG CAP PO SCH (23:28)
--- NOTE | 2017-08-03 09:49 | SOAPPROG ---
CANDIDO Progress Note Assessment/Plan: Assessment: 1. Coronary artery disease 2. 4 chamber dilated cardiomyopathy 3. Acute on chronic heart failure with reduced ejection fraction 4. History of stent in 2005/LAD 5. Unreliable history regarding question of prior myocardial infarction moderate mitral regurgitation 6.Mild aortic insufficiency 7.Mild tricuspid regurgitation 8.Dyspnea on exertion 9.Atrial fibrillation with rapid ventricular response. 10. Memory loss 11. Hypertension 12. Dyslipidemia Plan: 08/02/17 11:14 08/02/17 11:17 08/03/17 09:50 1. Coronary artery disease 2. Dilated cardiomyopathy 4. Acute on chronic heart failure with reduced ejection fraction 3. History of stent 2005 5. Question of past myocardial infarction 6. Moderate mitral regurgitation 7. Mild aortic insufficiency 8. Mild tricuspid regurgitation 9. Dyspnea exertion 10. Atrial fibrillation with rapid ventricular response 11. Memory loss 12. Hypertension 13. Dyslipidemia He is going for coronary angiography tomorrow. We have straightened out his anticoagulation. He has atrial fibrillation is fully anticoagulated. 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 He has no new symptoms or complaints. His atrial fibrillation ventricular response rate is being improved slowly. He is walking around and he is quite tired. Certainly concerned about him. He has significant clot in the left atrium. Has known significant mitral regurgitation he will not get a left ventriculogram tomorrow as we do not want to jeopardize his clots. I have answered all his questions. We will watch him closely Subjective: He feels well today. He is not having chest pain No shortness of breath Absolutely doing nothing. He is just lying in bed. We not sure what would happen if he got up and walked around. He has worked with occupational therapy and was okay walking to the door with assistance. He is on his oxygen. He is having no new no new neurologic complaints He has no nausea vomiting chest pain chest tightness jaw pain arm pain. No orthopnea or PND. He can lie flat for an extended period of time. Objective: Vital Signs Temp Pulse Resp BP Pulse Ox 36.6 C 101 H 19 109/77 97 08/03/17 08:00 08/03/17 08:00 08/03/17 08:00 08/03/17 08:00 08/03/17 08:00 Laboratory Results 08/02/17 04:16 08/02/17 04:16 08/02/17 08/03/17 08/04/17 05:59 05:59 05:59 Intake Total 400 680 Output Total 1000 1000 Balance -600 -320 PT 16.0 SEC (12.0-15.0) H 08/02/17 17:20 INR 1.26 (0.83-1.16) H 08/02/17 17:20 Selected Entries 08/03/17 08/03/17 04:00 08:00 Heart Rate 84 101 H Respiratory 16 19 Rate Blood Pressure 101/72 109/77 Laboratory Tests 08/01/17 08/01/17 04:00 04:00 NT-Pro-B Natriuret Pep 4220 H TSH 1.490 Physical Exam - Physical Exam General Appearance: alert, no apparent distress Neck: supple Respiratory: rhonchi, prolonged expiration Cardiac/Chest: systolic murmur, irregularly irregular, No gallop, No JVD Abdomen: non-tender, soft, No organomegaly Skin: warm/dry Extremities: No calf tenderness Neuro/Psych: alert, normal mood/affect ICD10 Worksheet Patient Problems: Problems Problem Status Onset Atrial fibrillation Acute
[2017-08-03] MEDS: FUROSEMIDE 40 MG TAB PO SCH (10:15)
[2017-08-03] MEDS: VENLAFAXINE XR 150 MG CAP PO SCH (10:15)
[2017-08-03] MEDS: ROSUVASTATIN CALCIUM 20 MG TAB PO SCH (10:15)
[2017-08-03] MEDS: ASPIRIN EC 81 MG TAB PO SCH (10:15)
[2017-08-03] MEDS: ADDERALL 10 MG TAB PO SCH ×3 (10:16→15:49)
[2017-08-03] MEDS: METOPROLOL SUCCINATE XR 100 MG TAB PO SCH (10:16)
[2017-08-03] MEDS: OXYCODONE/APAP 5/325 TAB PO PRN ×2 (10:16→15:49)
[2017-08-03] MEDS: LISINOPRIL 2.5 MG TAB PO SCH (10:16)
--- NOTE | 2017-08-03 13:19 | HOSPPROG ---
Hospitalist Progress Note Assessment/Plan: * Rapid afib -no cardioversion due to LA/RA thrombus -IV heparin -continue metoprolol * LA/RA thrombus -IV heparin pending cardiac cath -Eliquis for discharge * Acute systolic CHF - EF 5% -cardiac cath tomorrow -PO lasix, low dose lisinopril * CAD/distant stent * ADHD -Adderall * Parkinson's -Sinemet * Chronic LBP with continuous narcotic dependency -Percocet 4x day Subjective: No complaints, walking - very motivated to not need SNF Objective: Vital Signs Temp Pulse Resp BP Pulse Ox 36.9 C 85 18 93/63 L 89 L 08/03/17 11:33 08/03/17 11:33 08/03/17 11:33 08/03/17 12:25 08/03/17 11:33 Laboratory Results 08/02/17 04:16 08/03/17 10:35 08/02/17 08/03/17 08/04/17 05:59 05:59 05:59 Intake Total 400 680 Output Total 1000 1000 Balance -600 -320 PT 16.0 SEC (12.0-15.0) H 08/02/17 17:20 INR 1.26 (0.83-1.16) H 08/02/17 17:20 - Physical Exam Constitutional: no apparent distress, appears nourished, not in pain Cardiovascular: regular rate and rhythym, no murmur, rub, or gallop Respiratory: no respiratory distress, no rales or rhonchi, clear to auscultation Gastrointestinal: normoactive bowel sounds, soft, non-tender abdomen, no palpable masses Skin: no rashes or abrasions, no fluctuance, no induration Neurologic: AAOx3, sensation intact bilaterally Psychiatric: interacting appropriately, not anxious, not encephalopathic, thought process linear ICD10 Worksheet Patient Problems: Problems Problem Status Onset Atrial fibrillation Acute
--- NOTE | 2017-08-03 15:28 | ASMTCMCOM ---
CM Note CM Note Notes: 08/03/2017 Case Management Note Met w/pt and house mate Laura Chavarria [phone]. 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 Pt lives in lower level of Laura's multi level house. Laura reports that pt has been spending increasing amounts of time in bed recently. Per Laura pt does not leave the house often. Laura expressed concerns about Ion's diet reporting that he eats mostly cookies and soy milk. Pt does not like quality of food from [employer] and does not plan on utilizing their services at d/c. Pt is able to drive but getting groceries into the home from the car is a challenge for him. Pt uses O2 concentrator at night. He has portable tanks that weigh approximately 5 - 10 pounds per Laura and are hard for him to pull behind as he ambulates. Pt has plans for altering a backpack to carry O2 on his back but Laura expressed concern about pt ability to safely ambulate with O2. Pt is agreeable to SNF stay. Discussed options and pt requested referral to [facility]. Faxed via [email or web address]. Case Management d/c poc: [facility] accepted pt. Case Management to follow. Date Signed: 08/03/2017 03:28 PM Electronically Signed By:Sigrid Stokes RN
[2017-08-03] MEDS: CARBIDOPA/LEVODOPA 25 MG/100 MG TAB PO SCH (22:00)
[2017-08-03] MEDS: MIRTAZAPINE 15 MG TAB PO SCH (22:01)
[2017-08-03] MEDS: TEMAZEPAM 15 MG CAP PO SCH (22:01)
[2017-08-03] MEDS ORDERED: SENNOSIDES 17.6 MG/10 ML UDL PO PRN (22:15)
[2017-08-04] MEDS: OXYCODONE/APAP 5/325 TAB PO PRN ×2 (01:35→21:11)
[2017-08-04 04:21] LABS: PLATELET COUNT 157 10^3/uL (150-400)
[2017-08-04] MEDS ORDERED: NS 1,000 ML IV SCH (07:00)
[2017-08-04] MEDS ORDERED: DIAZEPAM 5 MG TAB PO ONE (08:00)
[2017-08-04] MEDS ORDERED: FAMOTIDINE 20 MG TAB PO ONE (08:00)
[2017-08-04] MEDS ORDERED: diphenhydrAMINE 25 MG CAP PO ONE (08:00)
[2017-08-04] MEDS ORDERED: ASPIRIN EC 325 MG TAB PO ONE (08:00)
[2017-08-04] MEDS ORDERED: fentaNYL 100 MCG/2 ML INJ ONE (08:26)
[2017-08-04] MEDS ORDERED: LIDOCAINE 1% 300 MG/30 ML SDV ONE (08:26)
[2017-08-04] MEDS ORDERED: IOPAMIDOL (ISOVUE-370) 150 ML BTL IV ONE (08:26)
[2017-08-04] MEDS ORDERED: MIDAZOLAM 2 MG/2 ML VIAL ONE (08:26)
--- NOTE | 2017-08-04 09:46 | SOAPPROG ---
SOIJEOMA Progress Note Assessment/Plan: Assessment: 1. Coronary artery disease 2. 4 chamber dilated cardiomyopathy 3. Acute on chronic heart failure with reduced ejection fraction 4. History of stent in 2006/LAD 5. Unreliable history regarding question of prior myocardial infarction moderate mitral regurgitation 6.Mild aortic insufficiency 7.Mild tricuspid regurgitation 8.Dyspnea on exertion 9.Atrial fibrillation with rapid ventricular response. 10. Memory loss 11. Hypertension 12. Dyslipidemia Plan: 08/02/17 11:14 08/02/17 11:17 08/03/17 09:50 1. Coronary artery disease 2. Dilated cardiomyopathy 4. Acute on chronic heart failure with reduced ejection fraction 3. History of stent 2006 5. Question of past myocardial infarction 6. Moderate mitral regurgitation 7. Mild aortic insufficiency 8. Mild tricuspid regurgitation 9. Dyspnea exertion 10. Atrial fibrillation with rapid ventricular response 11. Memory loss 12. Hypertension 13. Dyslipidemia 08/04/17 09:47 Problem list as above. The patient is ready for coronary angiography. He is getting an angiogram because he has had a stent in his LAD and now he has a low ejection fraction. He has a dilated cardiomyopathy I do not think this is secondary to coronary artery disease but we can't be sure and we need to definitively rule that out. He understands the risks and the options and wants to proceed. His heart failure is improving. We will start him on Eliquis 6 hours after his catheterization and continue to control his heart failure and atrial fibrillation. He is eager to get home and if he tolerates the cath and does well for the rest of the day I think we can discharge him either tonight or tomorrow morning. This would depend on what we find angiography. He is a patient who I will follow up in clinic and in 6 weeks after we start full anticoagulation our plan will be to try a transesophageal echocardiogram again and see if we can cardiovert him. My best hope for him is that his cardiomyopathy is secondary to a tachycardia due to his atrial fibrillation and that it will improved to normal. All Subjective: He has no shortness of breath. He has no orthopnea PND or dyspnea exertion right now. He is improving overall. He does not have chest pain. He is fatigued and tired and cannot work very much with his walking or with occupational therapy. He has no chest pain. He has no nausea vomiting Objective: Vital Signs Temp Pulse Resp BP Pulse Ox 36.4 C 76 19 89/61 L 95 08/04/17 04:00 08/04/17 04:00 08/04/17 04:00 08/04/17 04:00 08/04/17 04:00 Laboratory Results 08/04/17 04:05 08/04/17 04:05 08/03/17 08/04/17 08/05/17 05:59 05:59 05:59 Intake Total 680 560 Output Total 1000 Balance -320 560 PT 16.0 SEC (12.0-15.0) H 08/02/17 17:20 INR 1.26 (0.83-1.16) H 08/02/17 17:20 Selected Entries 08/04/17 08/04/17 00:00 04:00 Heart Rate 86 76 Respiratory 19 Rate O2 Sat (%) 95 Blood Pressure 100/70 91/61 L Laboratory Tests 08/04/17 04:05 BUN 26 H Creatinine 1.1 Cholesterol 87 L LDL Cholesterol, Calc 32 L HDL Cholesterol 45 Physical Exam - Physical Exam General Appearance: alert, no apparent distress Neck: full range of motion Respiratory: decreased breath sounds, rhonchi, prolonged expiration Cardiac/Chest: systolic murmur, irregularly irregular Abdomen: non-tender, soft, No organomegaly Skin: warm/dry Extremities: No non-tender Neuro/Psych: normal mood/affect ICD10 Worksheet Patient Problems: Problems Problem Status Onset Atrial fibrillation Acute
--- NOTE | 2017-08-04 09:47 | CPIP ---
[f rep st] INVASIVE CARDIAC PROCEDURE PROCEDURE: Left heart catheterization, right and left coronary arteriogram via the right femoral art hal without complications. INDICATION: The patient has congestive heart failure, acute on chronic systolic heart failure, is ad mitted to the hospital with that, with atrial fibrillation with a rapid ventricular response. He has known clot in his left atrium. He has mitral regurgitation. He has a dilated cardiomyopathy. So, he has been having shortness of breath at rest and has class 4 heart failure. He has known coronary artery disease with a mid-LAD stent back in 2005. A Followup coronary angiogra phy in [address] Telles was negative and the stent was in excellent shape. FINDINGS: ANGIOGRAPHY: 1. Left main coronary artery is normal. 2. The LAD has a 20% proximal stenosis prior to its stent. There is a 25% stenosis distal to the st ent in the mid LAD. There is no in-stent restenosis. There is excellent flow through the LAD. 3. He has intimal disease in the diagonals of the left anterior descending and he has intimal diseas e in the distal LAD. 4. He has a ramus intermedius with a 25% stenosis at its ostium. The patient has a distal circumfle x stenosis that is in the range of 25%. The circumflex gives a very large 1st obtuse marginal branch and then after the stenosis has a 2nd obtuse marginal branch. 5. The right coronary artery is codominant, has intimal disease but no high-grade obstruction. LEFT HEART CATHETERIZATION: 1. Left ventricular end-diastolic pressure was 18 and there was no aortic stenosis. 2. Patient is known to have a dilated aorta. The patient has no problems with this procedure. A full left ventriculogram was not done, given the patient's mitral regurgitation and clot that we know is present in the left atrium. We will resume his heparin after heparin was stopped when the patient came over to the slab grinder and w e will resume his heparin 4 hours after . We will resume it with no bolus. There were no complications. No significant blood loss. All questions answered. /[id number]/MODL
[2017-08-04] MEDS ORDERED: OXYCODONE/APAP 5/325 TAB PO PRN (09:49)
[2017-08-04] MEDS ORDERED: NITROGLYCERIN 0.4 MG BTL SL PRN (09:49)
[2017-08-04] MEDS ORDERED: ONDANSETRON 4 MG/2 ML VIAL IVP PRN (09:49)
[2017-08-04] MEDS ORDERED: ATROPINE SULFATE 1 MG/10 ML SYR IVP PRN (09:49)
[2017-08-04] MEDS: HYDROCODONE/APAP 5/325 TAB PO PRN ×2 (11:34→17:34)
[2017-08-04] MEDS: ADDERALL 10 MG TAB PO SCH ×3 (11:36→17:27)
[2017-08-04] MEDS: VENLAFAXINE XR 150 MG CAP PO SCH (11:36)
[2017-08-04] MEDS: ASPIRIN EC 81 MG TAB PO SCH (11:37)
[2017-08-04] MEDS: ROSUVASTATIN CALCIUM 20 MG TAB PO SCH (11:37)
--- NOTE | 2017-08-04 11:40 | ASMTCMCOM ---
CM Note CM Note Notes: 08/04/2017 Case Management Note Discussed pt during rounds today. Pt visited by Erin from [facility]. Erin running auth for [facility] as pt has only Medicare Part B coverage. Faxed up dates to [facility] via [employer]. Case Management d/c poc: to [facility] pending auth from insurance. Case Management to follow. Date Signed: 08/04/2017 11:39 AM Electronically Signed By:Sigrid Stokes RN
[2017-08-04] MEDS: METOPROLOL SUCCINATE XR 100 MG TAB PO SCH (11:42)
[2017-08-04] MEDS: LISINOPRIL 2.5 MG TAB PO SCH (11:43)
[2017-08-04] MEDS: FUROSEMIDE 40 MG TAB PO SCH (11:43)
--- NOTE | 2017-08-04 13:14 | HOSPPROG ---
Hospitalist Progress Note Assessment/Plan: 81 yo M w AF and newly diagnosed systolic heart failure * Rapid afib -no cardioversion due to LA/RA thrombus transitioned to eliquis -continue metoprolol * LA/RA thrombus -Eliquis for discharge * Acute systolic CHF - EF 5% -cardiac cath w no sig CAD and patent stent -PO lasix, low dose lisinopril * CAD/distant stent * ADHD -Adderall * Parkinson's -Sinemet * Chronic LBP with continuous narcotic dependency -Percocet 4x day proph: anticoagulated Subjective: case d/w dr melo. tele: HR in 70's (interp by me) Objective: Vital Signs Temp Pulse Resp BP Pulse Ox 36.4 C 89 15 112/86 H 99 08/04/17 12:13 08/04/17 12:13 08/04/17 12:13 08/04/17 12:13 08/04/17 12:13 Laboratory Results 08/04/17 04:05 08/04/17 04:05 08/03/17 08/04/17 08/05/17 05:59 05:59 05:59 Intake Total 680 560 Output Total 1000 Balance -320 560 PT 16.0 SEC (12.0-15.0) H 08/02/17 17:20 INR 1.26 (0.83-1.16) H 08/02/17 17:20 - Physical Exam Constitutional: no apparent distress, appears nourished Eyes: PERRL, anicteric sclera Ears, Nose, Mouth, Throat: moist mucous membranes, hearing normal Cardiovascular: regular rate and rhythym, no murmur, rub, or gallop, No systolic murmur Respiratory: no respiratory distress, no rales or rhonchi Gastrointestinal: normoactive bowel sounds, soft, non-tender abdomen Genitourinary: no bladder fullness, No antunez in urethra Skin: warm, normal color Musculoskeletal: full muscle strength ICD10 Worksheet Patient Problems: Problems Problem Status Onset Atrial fibrillation Acute
[2017-08-04] MEDS: POLYETHYLENE GLYCOL 3350 17 GM PKT PO SCH (17:27)
[2017-08-04] MEDS: APIXABAN 5 MG TAB PO SCH ×2 (17:27→21:08)
[2017-08-04] MEDS: CARBIDOPA/LEVODOPA 25 MG/100 MG TAB PO SCH (21:07)
[2017-08-04] MEDS: TEMAZEPAM 15 MG CAP PO SCH (21:08)
[2017-08-04] MEDS: MIRTAZAPINE 15 MG TAB PO SCH (21:08)
[2017-08-05] MEDS ORDERED: SENNOSIDES 1 TAB PO PRN (09:00)
[2017-08-05] MEDS: METOPROLOL SUCCINATE XR 100 MG TAB PO SCH (10:00)
[2017-08-05] MEDS: LISINOPRIL 2.5 MG TAB PO SCH (10:00)
[2017-08-05] MEDS: ASPIRIN EC 81 MG TAB PO SCH (10:00)
[2017-08-05] MEDS: ADDERALL 10 MG TAB PO SCH ×2 (10:00→12:32)
[2017-08-05] MEDS: ROSUVASTATIN CALCIUM 20 MG TAB PO SCH (10:00)
[2017-08-05] MEDS: VENLAFAXINE XR 150 MG CAP PO SCH (10:00)
[2017-08-05] MEDS: FUROSEMIDE 40 MG TAB PO SCH (10:00)
[2017-08-05] MEDS: APIXABAN 5 MG TAB PO SCH (10:00)
[2017-08-05] MEDS: POLYETHYLENE GLYCOL 3350 17 GM PKT PO SCH (10:01)
[2017-08-05] MEDS: OXYCODONE/APAP 5/325 TAB PO PRN ×2 (10:07→14:32)
--- NOTE | 2017-08-05 10:57 | HOSPPROG ---
Hospitalist Progress Note Assessment/Plan: 81 yo M w AF and newly diagnosed systolic heart failure * Rapid afib -no cardioversion due to LA/RA thrombus transitioned to eliquis -continue metoprolol * LA/RA thrombus -Eliquis for discharge * Acute systolic CHF - EF 15% -cardiac cath w no sig CAD and patent stent -PO lasix, low dose lisinopril * CAD/distant stent * ADHD -Adderall * Parkinson's -Sinemet * Chronic LBP with continuous narcotic dependency -Percocet 4x day proph: anticoagulated dispo: now amenable to snf; there today > 30 minutes on dc Subjective: tele: AF, rate controlled (interp by me). case d/w dr melo Objective: Vital Signs Temp Pulse Resp BP Pulse Ox 36.4 C 81 12 103/81 H 98 08/05/17 08:00 08/05/17 08:00 08/05/17 08:00 08/05/17 08:00 08/05/17 08:00 Laboratory Results 08/04/17 04:05 08/04/17 04:05 08/04/17 08/05/17 08/06/17 05:59 05:59 05:59 Intake Total 560 300 Balance 560 300 PT 16.0 SEC (12.0-15.0) H 08/02/17 17:20 INR 1.26 (0.83-1.16) H 08/02/17 17:20 - Physical Exam Constitutional: no apparent distress, appears nourished Eyes: PERRL, anicteric sclera Ears, Nose, Mouth, Throat: moist mucous membranes, hearing normal Cardiovascular: regular rate and rhythym, no murmur, rub, or gallop Respiratory: no respiratory distress, no rales or rhonchi, No inspiratory crackles Gastrointestinal: normoactive bowel sounds, soft, non-tender abdomen, no palpable masses Genitourinary: no bladder fullness, No antunez in urethra Skin: warm, normal color Musculoskeletal: full muscle strength, no muscle tenderness Neurologic: AAOx3 Psychiatric: interacting appropriately, not anxious Lymph, Heme, Immunologic: no cervical LAD ICD10 Worksheet Patient Problems: Problems Problem Status Onset Atrial fibrillation Acute
[2017-08-05 11:20] VITALS: RESP 16; TEMP 97.8; O2SAT 94
[2017-08-05 12:28] VITALS: BP 104/73; PULSE 88
--- NOTE | 2017-08-05 13:38 | PDIAF ---
- Diagnosis Diagnosis: congestive heart failure and atrialfibrillation Code Status: Full Code - Medication Management Discharge Medications: Medications to Continue on Transfer Amphet Asp and D/Amphet [Adderall 10 MG (*)] 10 mg PO BID@1200,1600 07/31/17 [ Last Taken 07/30/17] Amphet Asp and D/Amphet [Adderall 10 MG (*)] 20 mg PO DAILY 07/31/17 [Last Taken 07/30/17] Aspirin EC [Aspirin EC 81 mg (*)] 81 mg PO DAILY 07/31/17 [Last Taken 07/30/17] Carbidopa/Levodopa [Carbidopa-Levodopa 25-100 Tab] 2 each PO HS 07/31/17 [Last Taken 07/30/17] Metoprolol Succinate Xr [Toprol Xl 100 mg (*)] 100 mg PO DAILY 07/31/17 [Last Taken 07/30/17] Mirtazapine 15 mg PO HS 07/31/17 [Last Taken 07/30/17] Rosuvastatin Calcium [Crestor 20mg (*)] 20 mg PO DAILY 07/31/17 [Last Taken ] Venlafaxine Xr [Effexor Xr] 300 mg PO DAILY 07/31/17 [Last Taken 07/30/17] Zaleplon [ZALEPLON] 5 mg PO HS 07/31/17 [Last Taken 07/30/17] oxyCODONE HCL/ACETAMINOPHEN [Percocet 7.5-325 mg Tablet] 1 each PO QID PRN 07/31 [Last Taken 07/30/17] Apixaban [Eliquis] 5 mg PO BID tab 08/05/17 [Last Taken Unknown] Furosemide [Lasix 40 MG (*)] 40 mg PO DAILY tab 08/05/17 [Last Taken Unknown] Lisinopril [Zestril 2.5 mg (*)] 2.5 mg PO DAILY tab 08/05/17 [Last Taken Unknown] Polyethylene Glycol 3350 [Miralax 17 gm (*)] 17 gm PO DAILY pkt 08/05/17 [Last Taken Unknown] Discharge Medications: Refer to the Discharge Home Medication list for PRN reason. - Orders Services needed: Registered Nurse, Certified Relocation Associate, Master Deputy Commonwealth'S Attorney , Physical Therapy, Occupational Therapy - Follow Up Care Current Providers and Referrals: HAWA LLOYD [Primary Care Provider] - As per Instructions
--- NOTE | 2017-08-05 14:23 | SOAPPROG ---
[facility] Progress Note Assessment/Plan: Assessment: 1. Coronary artery disease 2. 4 chamber dilated cardiomyopathy 3. Acute on chronic heart failure with reduced ejection fraction 4. History of stent in 2006/LAD 5. Unreliable history regarding question of prior myocardial infarction moderate mitral regurgitation 6.Mild aortic insufficiency 7.Mild tricuspid regurgitation 8.Dyspnea on exertion 9.Atrial fibrillation with rapid ventricular response. 10. Memory loss 11. Hypertension 12. Dyslipidemia Plan: 08/02/17 11:14 08/02/17 11:17 08/03/17 09:50 1. Coronary artery disease 2. Dilated cardiomyopathy 4. Acute on chronic heart failure with reduced ejection fraction 3. History of stent 2005 5. Question of past myocardial infarction 6. Moderate mitral regurgitation 7. Mild aortic insufficiency 8. Mild tricuspid regurgitation 9. Dyspnea exertion 10. Atrial fibrillation with rapid ventricular response 11. Memory loss 12. Hypertension 13. Dyslipidemia 08/04/17 09:47 ormal. All 08/05/17 14:21 MEDICAL PROBLEM LIST CONTINUED FROM ABOVE. He has known coronary artery disease with stents in his LAD that is patent. He has a very large dilated cardiomyopathy with very poor ejection fraction. He has chronic heart failure with reduced ejection fraction. He has significant valvular issues including moderate mitral regurgitation, mild aortic insufficiency, Had mild tricuspid insufficiency. He has atrial fibrillation with rapid ventricular response. He has a poor memory. He has hypertension and dyslipidemia He would like to leave the hospital on full anticoagulation and follow up with me in 4-5 weeks when we will try to do a another KATELYN cardioversion and if his clot that was present earlier remains we will not be able to do a cardioversion however if the clot is gone we will attempt cardioversion to get him back in normal sinus rhythm. He will still need long-term anticoagulation. He and I have gone over this procedure and the options and he understands. Had a coronary angiogram that showed no significant obstructive disease at this time. He needs very aggressive work on his prevention his lipids his blood pressure is glucose control and his exercise. We have gone over this carefully and I think he is motivated and we will do a very good job. I will be seeing him in clinic in 7-10 days and then tried up titrate his heart failure medicines see how his atrial fibrillation is controlled check blood work if he so inclined to do that he may indicated maybe that he will not do much blood work but anyway we will see what he wants to do and then I will be following him over time to try to see if we can cardiovert him to sinus rhythm. He would he and I have talked about the risks of bleeding he is aware of this and I think we will do a good job watching for it. Subjective: He has no chest pain He has no nausea vomiting He is walking around and doing well. He is getting ready to go to an assisted living or rehab jail facility. He has no new complaints. He is not having neurologic complaints. He is not having palpitations. He has no trouble with his groin where he had his procedure. Objective: Vital Signs Temp Pulse Resp BP Pulse Ox 36.6 C 88 16 104/73 94 08/05/17 11:19 08/05/17 12:28 08/05/17 11:19 08/05/17 12:28 08/05/17 11:19 Laboratory Results 08/04/17 04:05 08/04/17 04:05 08/04/17 08/05/17 08/06/17 05:59 05:59 05:59 Intake Total 560 300 Balance 560 300 PT 16.0 SEC (12.0-15.0) H 08/02/17 17:20 INR 1.26 (0.83-1.16) H 08/02/17 17:20 Physical Exam - Physical Exam General Appearance: no apparent distress Respiratory: rhonchi, prolonged expiration Cardiac/Chest: systolic murmur, irregularly irregular Abdomen: non-tender, soft, No organomegaly Skin: pallor Extremities: No pedal edema Neuro/Psych: normal mood/affect ICD10 Worksheet Patient Problems: Problems Problem Status Onset Atrial fibrillation Acute
--- NOTE | 2017-08-06 12:51 | ASDISCHSUM ---
Discharge Information Plan Status:SNF Medically Cleared to Leave: Discharge Date:08/05/2017 03:09 PM D/C Disposition:Snf Facility ADT D/C Disposition:Snf Facility Projected Discharge Date:08/05/2017 11:00 AM Transportation at D/C: Discharge Delay Reason: Follow-Up Date:08/05/2017 11:00 AM Discharge Slot: Final Diagnosis: Placement Information Referral Type:*[facility]/SNF Referral ID:[id number] Provider Name:[facility] Address 1:[address] Address 2: City:[place] Selection Factors: State:[place] Patient Contact Information Contact Name:DECLINEPT Relationship:Friend Address: Home Phone: Work Phone: City: [facility] Phone: [facility] Code: Email: Financial Information Financial Class:Medicare Primary Plan Desc:MEDICARE IP PART B ONLY Primary Plan Number:[id number] Secondary Plan Desc:[employer] PPO Secondary Plan Number:[id number] Assessment Information [facility] Initial CM Assessment Living Arrangements What is your living Answers: With Other (Not Family) arrangement? Who do you live with? Type Of Residence What kind of residence do Answers: House you live in? Discharge Plan Comments Coordination Status Comments Notes: Pt is a 81 y/o man admitted for Afib and ADHD. Pt drinks daily and takes adderall 3x/day. Pt will have an echo at some point. Pt will most likely d/c independent when medically stable. No therapies ordered at this time. CM available for changes. Plan: Independent Date Signed: 08/01/2017 10:36 AM Electronically Signed By:MICHELLE Couch [facility] CM Progress Note CM Note CM Note Notes: Pts case discussed in morning rounds. Dr. Araujo had concerns regarding pts ability to d/c home. Therapies have been ordered and awaiting recommendations. Needs are TBD at this time. CM to follow. Plan: TBD Date Signed: 08/01/2017 03:55 PM Electronically Signed By:MICHELLE Couch [facility] CM Progress Note CM Note CM Note Notes: 08/03/2017 Case Management Note Met w/pt and house mate Laura Chavarria [phone]. 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 Pt lives in lower level of Laura's multi level house. Laura reports that pt has been spending increasing amounts of time in bed recently. Per Laura pt does not leave the house often. Laura expressed concerns about Ion's diet reporting that he eats mostly cookies and soy milk. Pt does not like quality of food from [employer] and does not plan on utilizing their services at d/c. Pt is able to drive but getting groceries into the home from the car is a challenge for him. Pt uses O2 concentrator at night. He has portable tanks that weigh approximately 5 - 10 pounds per Laura and are hard for him to pull behind as he ambulates. Pt has plans for altering a backpack to carry O2 on his back but Laura expressed concern about pt ability to safely ambulate with O2. Pt is agreeable to SNF stay. Discussed options and pt requested referral to [facility]. Faxed via [employer]. Case Management d/c poc: [facility] accepted pt. Case Management to follow. Date Signed: 08/03/2017 03:28 PM Electronically Signed By:Sigrid Stokes RN [facility] CM Progress Note CM Note CM Note Notes: 08/04/2017 Case Management Note Discussed pt during rounds today. Pt visited by Erin from [facility]. Erin running auth for [facility] as pt has only Medicare Part B coverage. Faxed up dates to [facility] via [employer]. Case Management d/c poc: to [facility] pending auth from insurance. Case Management to follow. Date Signed: 08/04/2017 11:39 AM Electronically Signed By:Sigrid Stokes RN Case Management Discharge Plan Note Case Management Discharge Discharge Order Complete? Answers: Yes Patient to Obtain Answers: Independently Medications Transportation Arranged Answers: Other Notes: [facility] will Pick (Date 08/05/2017 02:30 PM & Time) Faxed Final Orders Answers: Yes Discharge Comments Notes: Patient discharged to [facility]. Transport arranged by facility. EDEL Centeno to call report Date Signed: 08/05/2017 02:06 PM Electronically Signed By:Brittani Yeboah RN Intervention Information Intervention Type:*ELIZABETH-Signed Date of Service:08/01/2017 09:32 AM Patient Type:Observation Staff Member:Carla Aquino Hours: Discipline: Severity: Comment: Intervention Type:*IM-Signed Date of Service:08/05/2017 01:56 PM Patient Type:Inpatient Staff Member:Carla Aquino Hours: Discipline: Severity: Comment:
== END 2017-08-05 15:09 | DRG 286 ==
LOC: F2W 18:25 → OBSVTOIN 08-01 13:36
PROVIDERS: ADMIT Internal Medicine; ATTEND Internal Medicine
PROC: 4A023N8 Measurement of Cardiac Sampling and Pressure, Bilateral, Percutaneous Approach (ICD-10-PCS; principal; 2017-08-01)
PROC: B2111ZZ Fluoroscopy of Multiple Coronary Arteries using Low Osmolar Contrast (ICD-10-PCS; principal; 2017-08-01)
DX: I48.0 Paroxysmal atrial fibrillation (principal); I50.23 Acute on chronic systolic (congestive) heart failure; G20 Parkinson's disease; I25.10 Atherosclerotic heart disease of native coronary artery without angina pectoris; I42.0 Dilated cardiomyopathy; I34.0 Nonrheumatic mitral (valve) insufficiency; E78.5 Hyperlipidemia, unspecified; M54.5 Low back pain; F11.20 Opioid dependence, uncomplicated; I12.9 Hypertensive chronic kidney disease with stage 1 through stage 4 chronic kidney disease, or unspecified chronic kidney disease; N18.9 Chronic kidney disease, unspecified; Z95.5 Presence of coronary angioplasty implant and graft
CPT/HCPCS: 85520-90; 92507-GN; 92523-GN; 96365; 97116-GP; 97161-GP; 97165-GO; 97530-GP; 97535-GO; C1760; G0378; G0515-GO; G8978-GP-CJ; G8979-GP-CI; G8987-GO-CJ; G8988-GO-CI; G8989-GO-CI; G9165-GN-CJ; G9166-GN-CI; G9167-GN-CJ; J0461; J1644; J1650; J1940; J2250; J2704; J3010; Q9967

== ENCOUNTER 2018-04-05 13:13 | Emergency (ER) | payer OTHER ==
--- NOTE | 2018-04-05 13:25 | EDPHY ---
HPI/HX/ROS/PE/MDM Narrative: CHIEF COMPLAINT: Dizzy x 2 days HPI: The patient is an 82 y/o male with a history of atrial fibrillation and cardiac stents (LAD) complaining of persistent dizziness for 2 days. In August he was admitted for tachycardia after not taking his medications for several days. Four days ago he was discharged from [facility] and he has not taken his prescribed medications since. At 12:00, 1.5 hours ago, he called his PCP Dr. Sanchez and was advised to present to the emergency room for his symptoms. Currently the room does not feel like it is spinning and he does not fee like he is going to pass out. He states the dizziness feels like "a pressure in his head". He denies a history of similar symptoms. He does not know if this is what prior episodes of atrial fibrillation felt like, as he is unable to tell when he is a-fib. No chest pain, shortness of breath, abdominal pain, urinary or bowel complaints, numbness, paresthesias, fevers. This patient is a poor historian. REVIEW OF SYSTEMS: Aside from elements discussed in the HPI, a comprehensive 10-point review of systems was reviewed and is negative. 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 ENT: Eyes are normal to inspection. ENT inspection normal. Neck: Normal inspection. Full range of motion. Respiratory: No respiratory distress. Breath sounds normal bilaterally. Cardiovascular: Irregularly irregular tachycardia. Strong peripheral pulses. Normal cap refill. Abdomen: The abdomen is nontender to palpation. There are no peritoneal signs. There are normal bowel sounds. Back: Normal to inspection. No tenderness to palpation. Skin: Normal color. No rash. Warm and dry. Extremities: Normal appearance. Full range of motion. Neuro: Oriented x3. Normal motor function. Normal sensory function. ED Course: 1325: EKG was ordered and interpreted by myself. Please see [employer] system for official reading. 1332: 10mg IV Diltiazem bolus administered as he is in A-fib 1404: Patient's heart rate has returned to 106bpm; additional 10mg IV Diltiazem administered. 1 tab Percocet PO administered as he has not taken his pain medications for the past 4 days. 1431: I spoke with the medical case manager regarding this patient. 1514: I spoke with the medical case manager again regarding this patient and his stay at [facility]. The patient recently left [facility] due to the cost. 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 5mg PO Eliquis and 100mg PO Toprol given prior to discharge. The medical case manager and I agree that this patient is safe to be returned home. I will provide him a refill of several days for his prescriptions. I have strongly encouraged him to follow up with his primary care provider for a more long-term fill of his scripts. Return precautions provided; patient is comfortable with this plan. MDM: This patient presents with rapid atrial fibrillation, likely secondary to several days of medication non-compliance. I consulted our French Weaver who was extensively involved in the patient's care. Apparently the patient left [facility] for financial reasons and has been living in a hotel. He declines admission to the hospital at this time and plans to contact his PCP Dr. Sanchez tomorrow to refill his medications. He was given two doses of IV diltiazem which stabilized his HR and he is asymptomatic. No signs of ACS or other medical emergency on workup. I have given patient metoprolol and Eliquis here in ED to help cover him, and have written 3 day prescriptions for his essential meds. I have some concerns about the patient's plan, but he is certainly still decisional so I cannot hold him here against his will. - Data Points Laboratory Results: Laboratory Results 04/05/18 13:30 04/05/18 13:30 04/05/18 04/05/18 04/05/18 13:41 13:30 13:30 WBC RBC Hgb Hct MCV MCH MCHC RDW Plt Count MPV Neut % (Auto) Lymph % (Auto) Laurens % (Auto) Eos % (Auto) Baso % (Auto) Nucleat RBC Rel Count Absolute Neuts (auto) Absolute Lymphs (auto) Absolute Monos (auto) Absolute Eos (auto) Absolute Basos (auto) Absolute Nucleated RBC Immature Gran % Immature Gran # PT 14.7 SEC SEC (12.0-15.0) INR 1.13 (0.83-1.16) APTT 28.1 SEC SEC (23.0-38.0) Sodium 142 mEq/L mEq/L (135-145) Potassium 4.3 mEq/L mEq/L (3.3-5.0) Chloride 107 mEq/L mEq/L (97-110) Carbon Dioxide 22 mEq/l mEq/l (22-31) Anion Gap 13 mEq/L mEq/L (6-14) BUN 23 mg/dL mg/dL (7-23) Creatinine 1.2 mg/dL mg/dL (0.7-1.3) Estimated GFR 58 Glucose 124 mg/dL H mg/dL (70-100) Calcium 10.0 mg/dL mg/dL (8.5-10.4) POC Troponin I 0.01 ng/mL ng/mL (0.00-0.08) 04/05/18 13:30 WBC 7.37 10^3/uL 10^3/uL (3.80-9.50) RBC 5.66 10^6/uL 10^6/uL (4.40-6.38) Hgb 17.8 g/dL H g/dL (13.7-17.5) Hct 50.7 % % (40.0-51.0) MCV 89.6 fL fL (81.5-99.8) MCH 31.4 pg pg (27.9-34.1) MCHC 35.1 g/dL g/dL (32.4-36.7) RDW 14.1 % % (11.5-15.2) Plt Count 216 10^3/uL 10^3/uL (150-400) MPV 10.0 fL fL (8.7-11.7) Neut % (Auto) 72.0 % % (39.3-74.2) Lymph % (Auto) 17.1 % % (15.0-45.0) Laurens % (Auto) 9.2 % % (4.5-13.0) Eos % (Auto) 0.8 % % (0.6-7.6) Baso % (Auto) 0.5 % % (0.3-1.7) Nucleat RBC Rel Count 0.0 % % (0.0-0.2) Absolute Neuts (auto) 5.30 10^3/uL 10^3/uL (1.70-6.50) Absolute Lymphs (auto) 1.26 10^3/uL 10^3/uL (1.00-3.00) Absolute Monos (auto) 0.68 10^3/uL 10^3/uL (0.30-0.80) Absolute Eos (auto) 0.06 10^3/uL 10^3/uL (0.03-0.40) Absolute Basos (auto) 0.04 10^3/uL 10^3/uL (0.02-0.10) Absolute Nucleated RBC 0.00 10^3/uL 10^3/uL (0-0.01) Immature Gran % 0.4 % % (0.0-1.1) Immature Gran # 0.03 10^3/uL 10^3/uL (0.00-0.10) PT INR APTT Sodium Potassium Chloride Carbon Dioxide Anion Gap BUN Creatinine Estimated GFR Glucose Calcium POC Troponin I Medications Given: Discontinued Medications Diltiazem HCl (Cardizem 25 Mg/5 Ml Vial) 10 mg IVP EDNOW ONE Stop: 04/05/18 13:32 Last Admin: 04/05/18 13:41 Dose: 10 mg Diltiazem HCl (Cardizem 25 Mg/5 Ml Vial) 10 mg IVP EDNOW ONE Stop: 04/05/18 13:56 Last Admin: 04/05/18 14:04 Dose: 10 mg Oxycodone/Acetaminophen (Percocet 5/325) 1 tab PO EDNOW ONE Stop: 04/05/18 14:05 Last Admin: 04/05/18 14:06 Dose: 1 tab Point of Care Test Results: Chemistry 04/05/18 13:41 POC Troponin I 0.01 ng/mL ng/mL (0.00-0.08) General Time Seen by Provider: 04/05/18 13:22 Initial Vital Signs: Initial Vital Signs Temperature (C) 36.5 C 04/05/18 13:15 Heart Rate 82 04/05/18 13:15 Respiratory Rate 18 04/05/18 13:15 Blood Pressure 125/88 H 04/05/18 13:15 O2 Sat (%) 91 L 04/05/18 13:15 O2 Delivery Mode Room Air Allergies/Adverse Reactions: Penicillins Allergy (Verified 04/05/18 13:15) shellfish derived Allergy (Verified 04/05/18 13:15) Home Medications: Medication Instructions Recorded Amphet Asp and D/Amphet [Adderall 10 mg PO BID@1200,1600 07/31/17 10 MG (*)] Amphet Asp and D/Amphet [Adderall 20 mg PO DAILY 07/31/17 10 MG (*)] Aspirin EC [Aspirin EC 81 mg (*)] 81 mg PO DAILY 07/31/17 Carbidopa/Levodopa 2 each PO HS 07/31/17 [Carbidopa-Levodopa 25-100 Tab] Metoprolol Succinate Xr [Toprol Xl 100 mg PO DAILY 07/31/17 100 mg (*)] Mirtazapine 15 mg PO HS 07/31/17 Rosuvastatin Calcium [Crestor 20mg 20 mg PO DAILY 07/31/17 (*)] Venlafaxine Xr [Effexor Xr] 300 mg PO DAILY 07/31/17 Zaleplon [ZALEPLON] 5 mg PO HS 07/31/17 oxyCODONE HCL/ACETAMINOPHEN 1 each PO QID PRN 07/31/17 [Percocet 7.5-325 mg Tablet] Apixaban [Eliquis] 5 mg PO BID tab 08/05/17 Furosemide [Lasix 40 MG (*)] 40 mg PO DAILY tab 08/05/17 Lisinopril [Zestril 2.5 mg (*)] 2.5 mg PO DAILY tab 08/05/17 Polyethylene Glycol 3350 [Miralax 17 gm PO DAILY pkt 08/05/17 17 gm (*)] Apixaban [Eliquis] 5 mg PO BID 3 Days tab 04/05/18 Metoprolol Succinate [Toprol Xl] 100 mg PO DAILY #3 tab.er.24h 04/05/18 buPROPion XL [Wellbutrin Xl] 150 mg PO DAILY #3 tab 04/05/18 Departure - Departure Disposition: Home, Routine, Self-Care Clinical Impression: Noncompliance with medication regimen Atrial fibrillation Qualifiers: Atrial fibrillation type: unspecified Qualified Code(s): I48.91 - Unspecified atrial fibrillation Condition: Good Instructions: A-fib (Atrial Fibrillation) (ED) Additional Instructions: Please pick-up and take your prescriptions as prescribed, I have only given you enough medications for several days. You will need to follow-up with your physician to fill the scripts for a longer period of time. Follow-up with your primary doctor tomorrow without fail. Return to the Emergency Department for fever, chest pain, shortness of breath, increasing pain or other worsening of condition. Referrals: HAWA SANCHEZ [Primary Care Provider] - As per Instructions Prescriptions: Apixaban [Eliquis] 5 mg PO BID 3 Days tab buPROPion XL [Wellbutrin Xl] 150 mg PO DAILY #3 tab Metoprolol Succinate [Toprol Xl] 100 mg PO DAILY #3 tab.er.24h Report Scribed for: Andres Hoffman Report Scribed by: Di Shearer Date of Report: 04/05/18 Time of Report: 13:25 Physician Review and Approval Statement: Portions of this note were transcribed by an ED scribe. I personally performed the history, physical exam, and medical decision making; and confirm the accuracy of the information in the transcribed note.
[2018-04-05] MEDS ORDERED: DILTIAZEM 25 MG/5 ML VIAL IVP ONE ×2 (13:31→13:55)
[2018-04-05 13:48] LABS: PLATELET COUNT 216 10^3/uL (150-400)
[2018-04-05] MEDS ORDERED: OXYCODONE/APAP 5/325 TAB PO ONE (14:04)
[2018-04-05 14:08] LABS: INR 1.13 (0.83-1.16); PROTIME(PATIENT) 14.7 SEC (12.0-15.0)
[2018-04-05] MEDS ORDERED: METOPROLOL SUCCINATE XR 100 MG TAB PO ONE (16:10)
[2018-04-05] MEDS ORDERED: APIXABAN 5 MG TAB PO ONE (16:11)
[2018-04-05] MEDS ORDERED: OXYCODONE/APAP 5/325MG PREPACK#4 BTL TAKEHOME ONE (16:16)
[2018-04-05 16:21] VITALS: BP 131/96
--- NOTE | 2018-04-05 17:33 | ASMTCMCOM ---
CM Note CM Note Notes: Pt presented to the Emergency Department with persistent dizziness x 2 days. History includes diabetes type 2, afib, dementia, cardiac stents, prostate surgery, supplemental oxygen at night, major depressive disorder, essential HTN. Pt is single and currently resides alone. Met with pt to discuss current situation. Pt reports that he left [facility] several days ago. He is unsure if his departure ended up being against medical advice or not. He states he "moved to [facility] in early November after being evicted from his apartment" (the multilevel house owned by Laura, mentioned in a previous CM note from 08/01/17). The pt states he started out at [facility] under his Medicare benefits for rehab and then became a resident. The pt "recently learned that [facility] has been charging him $300/day and that Medicare was no longer covering his stay." The pt informed staff at [facility] last week that he would be moving out. He reports being able to stay in a hotel for much less ($149/day). The pt states he has been staying at the [facility]. The pt says his primary care doctor is Dr. Sanchez. The pt says he has been unable to fill prescriptions after leaving [facility], because he wasn't given any of his medication information at the time of discharge. He knows he takes medication for his afib, Percocet, something for sleep, but he doesn't have a list. Pt requesting CM contact [facility] for a complete medication list. Pt states he does not have any family in the area and his only contact is Laura (his prior landlord). The pt states that he has applied for housing through the [facility] and received a call last week about an apartment in [place] for $825/month. The pt states he "doesn't have the exact address of the apartment, but he thinks it is [facility] [address] in [place]." He said "it is a ground level unit that is really nice and has it's own private entrance." He states he has completed the application process and just has to provide a copy of his Social Security card to finalize the paperwork. The pt reports having a [employer]. He says he has been obtaining food on his own and denies needs other than assistance with his medication. The pt states he did not share any of this information with [facility]. Call placed to Emily at [facility]. Left voice message. Call received back from Néstor , Director of Care Transitions at [facility]. Per Néstor, Emily asked him to return CM's call. Néstor had limited access to the pt's information. He reports that the pt was admitted on 11/12/17 from [facility] and then converted over to residency. The pt was discharged on 04/03/18. Néstor states the pt had no Medicare or Medicaid benefits available and has been billed as private pay for the past several months. Néstor believes the pt left AMA due to the cost. This CM requested a discharge summary and current medication list. Néstor called facility and requested they fax to [facility] . Discharge summary and medication list received and reviewed with Dr. Hoffman. Per notes from [facility], there were concerns of altered mental status, confusion and dementia. The SSM that met with pt from [facility] states multiple times the pt was unable to answer her questions and could not provide information on his moving company, storage locker, apartment, vehicle, etc. Per notes, an APS report was filed at the time of discharge. This CM met with pt again to verify information. Pt reports using "[employer] to move out of [facility]." He says he has used them before and really likes them. The pt says his "belongings are being stored in his [employer] and a storage locker until his apartment becomes available." Pt states that "Dr. Sanchez is his PCP and is located at [address] [place] [address] in [place]." He states the PCP's phone number is . He states "Dr. 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 The pt says he has been staying at the [facility] located on [address] in [place]. The pt says he left a message for the [facility] on Friday regarding his apartment. He plans to obtain a copy of his Social Security Card from the [facility] offices in [place] tomorrow. The pt states he is "doing fine obtaining food." He remarked "I didn't get to 82 years old by not following up on things." He reports having gonzalez and a credit card. The pt is carrying an iPhone with all of the necessary numbers he needs for follow up. Discussed pt case at length with Dr. Hoffman. Pt is requesting to discharge back to [facility] and is refusing to return to [facility] stating "I will never go back there, they weren't doing anything for me. That place is terrible." Discussed pt's need for nocturnal oxygen. Per EDEL Jackson pt refuses "to deal with the oxygen right now." Pt states "I will take care of that with Dr. Sanchez once I have my apartment." Per [facility], pt has not been using nocturnal oxygen as of recent weeks. Diabetic foot ulcer noted on medication list, pointed out to Dr. Hoffman. Dr. Hoffman to prescribe medications for tonight - to be given in ED prior to discharge and prescriptions for a two day supply until pt is able to follow up with Dr. Sanchez. Per Dr. Hoffman, pt appears competent to make his own decisions at this time. Pt assured CM he will follow up with Dr. Sanchez on Friday04/06/18. Pt also agrees to follow up with [facility] on his apartment. This CM attempted to leave a voice message for Dr. Sanchez's office to follow up with pt on Friday. Per answering service, CM to call back on Friday morning. Discharge summary and medication list faxed to Dr. Sanchez's office. CM will call in the morning and remains available for any further issues or concerns. Date Signed: 04/05/2018 05:32 PM Electronically Signed By:Yi Calderon RN
--- NOTE | 2018-04-07 12:52 | ASMTCMCOM ---
CM Note CM Note Notes: Late Entry from 04/06/18: Followed up with pt's PCP Dr Sanchez's office. Pt had already been scheduled an appt for later in the day (04/06/18) at 15:45pm. CM encouraged them to call back if the RN or Dr Sanchez needs any further information etc. CM available for further assistance if needed. Date Signed: 04/07/2018 12:51 PM Electronically Signed By:Chyna Cartagena RN
--- NOTE | 2018-04-07 16:56 | CPEKG ---
Test Reason : OPEN Blood Pressure : / mmHG Vent. Rate : 128 BPM Atrial Rate : 201 BPM P-R Int : 132 ms QRS Dur : 089 ms QT Int : 300 ms P-R-T Axes : 000 000 195 degrees QTc Int : 438 ms Atrial fibrillation Low voltage, extremity leads Anteroseptal infarct, old Repolarization abnormality, prob rate related Confirmed by Miguel Singh ([id number]) on 04/07/2018 4:55:29 PM Referred By: Confirmed By:Miguel Singh
== END 2018-04-05 16:46 | disposition home or self-care (01) ==
DX: I48.91 Unspecified atrial fibrillation (principal); Z95.9 Presence of cardiac and vascular implant and graft, unspecified
CPT/HCPCS: 84484-PO; 96374

== ENCOUNTER 2018-05-22 15:41 | Inpatient (IN) | payer OTHER ==
--- NOTE | 2018-05-22 15:48 | EDPHY ---
H & P Time Seen by Provider: 05/22/18 15:47 HPI/ROS: CHIEF COMPLAINT: Hypotension HISTORY OF PRESENT ILLNESS: The patient is referred to the emergency department from his primary care provider's office with hypotension. The patient has a history of chronic atrial fibrillation and is anticoagulated with Eliquis. The patient is also on metoprolol 20 mg daily. The patient denies any history of fever, cough, congestion or pain. The patient was recently admitted to the hospital with rapid atrial fibrillation and mild volume overload. The patient denies any significant weight gain. He denies any history of fall or trauma. The patient denies significant dyspnea. Additional history is obtained from the patient's home health nurse who reports that his apartment is currently quite unkept and they have concerns about the patient's ability to care for himself independently. They are recommending admission to the hospital for case management and possible SNF placement. REVIEW OF SYSTEMS: A comprehensive 10 point review of systems is otherwise negative aside from elements mentioned in the history of present illness. Source: Patient Exam Limitations: No limitations - Medical/Surgical History Hx Asthma: No Hx Chronic Respiratory Disease: Yes Hx Diabetes: No Hx Cardiac Disease: Yes Hx Renal Disease: No Hx Cirrhosis: No Hx Alcoholism: No Hx HIV/AIDS: No Hx Splenectomy or Spleen Trauma: No Other PMH: afib, prostetectomy, restless leg syndrome, adhd, chronic pain back, L4 L5 laminectomy, COPD, home 02 @ 2L, ONE KIDNEY DOESN'T WORK, BLE EDEMA, mi with stents - Social History Smoking Status: Former smoker - Physical Exam Exam: General Appearance: Elderly male Eyes: Pupils equal and round no pallor or injection ENT, Mouth: Dry mucous membranes Respiratory: There are no retractions, lungs are clear to auscultation Cardiovascular: Irregular rate consistent with underlying atrial fibrillation Gastrointestinal: Abdomen is soft and nontender, no masses, bowel sounds normal Neurological: 5/5 strength noted all 4 extremities Skin: Warm and dry, no rashes Musculoskeletal: Neck is supple nontender Extremities: symmetrical, full range of motion Psychiatric: Patient is oriented X 3, there is no agitation Constitutional: Initial Vital Signs Temperature (C) 36.8 C 05/22/18 15:48 Heart Rate 79 05/22/18 15:48 Respiratory Rate 18 05/22/18 15:48 Blood Pressure 88/61 L 05/22/18 15:48 O2 Sat (%) 93 05/22/18 15:48 O2 Delivery Mode Room Air Allergies/Adverse Reactions: Penicillins Allergy (Verified 05/03/18 13:53) Swelling/neck,face,throat shellfish derived Allergy (Verified 04/29/18 15:40) Home Medications: Medication Instructions Recorded Carbidopa/Levodopa 2 each PO HS 07/31/17 [Carbidopa-Levodopa 25-100 Tab] Mirtazapine 15 mg PO HS 07/31/17 Rosuvastatin Calcium [Crestor 20mg 20 mg PO DAILY 07/31/17 (*)] Venlafaxine Xr [Effexor Xr] 300 mg PO DAILY 07/31/17 Apixaban [Eliquis] 5 mg PO BID tab 08/05/17 Acetaminophen [Tylenol ES 500 mg 1,000 mg PO HS 04/29/18 (*)] Gabapentin [Neurontin 300 MG (*)] 300 mg PO HS 04/29/18 Melatonin [Melatonin 3 MG (*)] 12 mg PO HS PRN 04/29/18 Metoprolol Succinate [Toprol Xl] 100 mg PO BID 04/29/18 buPROPion XL [Wellbutrin 150mg XL] 150 mg PO DAILY 04/29/18 Doxycycline Hyclate [Vibramycin 100 mg PO BID #12 capsule 05/05/18 100 MG (*)] Lisinopril [Zestril 5 mg (*)] 10 mg PO DAILY #60 tab 05/05/18 Medical Decision Making - Diagnostics EKG Interpretation: EKG: Complete interpretation has been separately recorded in the [employer] archive. Summary impression: Atrial fibrillation, rate 120 Imaging Results: Imaging Impressions Chest X-Ray 05/22/18 15:59 Impression: Stable portable chest ED Course/Re-evaluation: The patient presents to the ED with low blood pressure without acute complaints. The patient is afebrile. He has no evidence of septic physiology. The patient is on a beta-prosper and does appear clinically dehydrated. I suspect that he is having side effects from his beta-prosper and potentially from being over diuresed. Chest x-ray demonstrates no evidence of heart failure. The patient was given 500 mL of normal saline. Patient is noted to have an indeterminately elevated troponin which he has had before in the past attributed to demand ischemia. Re-evaluated the patient at 5:30 p.m. he is in no acute distress with stable vital signs. Differential Diagnosis: Differential diagnosis considered includes atrial fibrillation with rapid ventricular response, dehydration, medication side effect, beta-prosper toxicity , renal failure, dehydration - Data Points Laboratory Results: Laboratory Results 05/22/18 15:42 05/22/18 15:42 05/22/18 05/22/18 05/22/18 16:57 15:42 15:42 WBC 7.12 10^3/uL 10^3/uL (3.80-9.50) RBC 5.34 10^6/uL 10^6/uL (4.40-6.38) Hgb 16.7 g/dL g/dL (13.7-17.5) Hct 49.2 % % (40.0-51.0) MCV 92.1 fL fL (81.5-99.8) MCH 31.3 pg pg (27.9-34.1) MCHC 33.9 g/dL g/dL (32.4-36.7) RDW 13.2 % % (11.5-15.2) Plt Count 263 10^3/uL 10^3/uL (150-400) MPV 10.8 fL fL (8.7-11.7) Neut % (Auto) 74.5 % H % (39.3-74.2) Lymph % (Auto) 13.3 % L % (15.0-45.0) Am[place] % (Auto) 9.7 % % (4.5-13.0) Eos % (Auto) 1.5 % % (0.6-7.6) Baso % (Auto) 0.6 % % (0.3-1.7) Nucleat RBC Rel Count 0.0 % % (0.0-0.2) Absolute Neuts (auto) 5.30 10^3/uL 10^3/uL (1.70-6.50) Absolute Lymphs (auto) 0.95 10^3/uL L 10^3/uL (1.00-3.00) Absolute Monos (auto) 0.69 10^3/uL 10^3/uL (0.30-0.80) Absolute Eos (auto) 0.11 10^3/uL 10^3/uL (0.03-0.40) Absolute Basos (auto) 0.04 10^3/uL 10^3/uL (0.02-0.10) Absolute Nucleated RBC 0.00 10^3/uL 10^3/uL (0-0.01) Immature Gran % 0.4 % % (0.0-1.1) Immature Gran # 0.03 10^3/uL 10^3/uL (0.00-0.10) Sodium 137 mEq/L mEq/L (135-145) Potassium 5.1 mEq/L mEq/L (3.5-5.2) Chloride 106 mEq/L mEq/L (97-110) Carbon Dioxide 25 mEq/l mEq/l (22-31) Anion Gap 6 mEq/L mEq/L (6-14) BUN 24 mg/dL H mg/dL (7-23) Creatinine 1.4 mg/dL H mg/dL (0.7-1.3) Estimated GFR 48 Glucose 114 mg/dL H mg/dL (70-100) Calcium 9.8 mg/dL mg/dL (8.5-10.4) POC Troponin I 0.14 ng/mL H ng/mL (0.00-0.08) NT-Pro-B Natriuret Pep 4090 pg/mL H pg/mL (0-450) Medications Given: Discontinued Medications Sodium Chloride (Ns) 500 mls @ 1,000 mls/hr IV EDNOW ONE PRN Reason: Protocol Stop: 05/22/18 16:28 Last Admin: 05/22/18 16:13 Dose: 500 mls Point of Care Test Results: Chemistry 05/22/18 16:57 POC Troponin I 0.14 ng/mL H ng/mL (0.00-0.08) Departure - Departure Disposition: [facility] Inpatient Acute Clinical Impression: Dehydration, Failure to thrive in adult, Atrial fibrillation, Renal failure Condition: Good Referrals: Patient,NotPresent [Primary Care Provider] - As per Instructions
[2018-05-22] MEDS ORDERED: NS 500 ML IV ONE (15:59)
--- NOTE | 2018-05-22 16:00 | CPEKG ---
Test Reason : OPEN Blood Pressure : / mmHG Vent. Rate : 120 BPM Atrial Rate : 168 BPM P-R Int : 144 ms QRS Dur : 087 ms QT Int : 338 ms P-R-T Axes : 000 021 000 degrees QTc Int : 478 ms Atrial fibrillation Low voltage, extremity leads Borderline prolonged QT interval Confirmed by Sukhdeep Valdes ([id number]) on 05/22/2018 4:00:02 PM Referred By: Confirmed By:Sukhdeep Valdes
[2018-05-22 16:09] LABS: PLATELET COUNT 263 10^3/uL (150-400)
[2018-05-22] MEDS ORDERED: ACETAMINOPHEN 325 MG TAB PO PRN (17:41)
[2018-05-22] MEDS ORDERED: ONDANSETRON DISINTEGRATING 4 MG TAB PO PRN (17:41)
[2018-05-22] MEDS ORDERED: ONDANSETRON 4 MG/2 ML VIAL IVP PRN (17:41)
[2018-05-22] MEDS ORDERED: ALBUTEROL 3 ML DEYVIAL IH PRN (17:41)
[2018-05-22] MEDS ORDERED: HYDROmorphONE/DILAUDID 1 MG/ML INJ IVP PRN (17:41)
[2018-05-22] MEDS ORDERED: NS 1,000 ML IV SCH (17:45)
--- NOTE | 2018-05-22 18:06 | ASMTCMCOM ---
CM Note CM Note Notes: This CM received call from Renetta HOLLINGSWORTH, Audioprosthologist at Dr. Sanchez's office regarding patient's presentation to the ED, and concerns about patient's living situation. Chart reviewed, including CM notes from 04/29/18 and CM discharge summary from previous admission on 05/05/18. Patient was discharged from this hospital on 05/05 with [facility]. Per Renetta's message, patient appears to "failing" this discharge plan and is concerned that patient needs a higher level of care. Upon this review, patient has an admission order for further workup. I have LM with [facility] intake #[id number] (6:00 PM) to inform of admission. CM to follow with discharge planning Date Signed: 05/22/2018 06:05 PM Electronically Signed By:Sienna Keene RN
--- NOTE | 2018-05-22 18:10 | PDGENHP ---
History and Physical - Chief Complaint low bp - History of Present Illness 82 yo M with PMH that includes paroxysmal a fib, chronic systolic heart failure with EF most recently of 25% as well as CAD and DM2 presenting from his PCP's office with concerns of low bp. Apparently in the office his BP was noted to be 60/40 and he was sent here for further evaluation. Patient notes at that time he felt slightly dizzy but otherwise fairly well. He was seeing his PCP as he has been concerned that his meds are 'a mess' and was hoping to have all of his meds reevaluated. He states that his PCP essentially told him that he was dying , and that his vital signs are not compatible with life. Patient is a very poor historian and it is somewhat unclear the details of everything that has been going on but apparently his home health nurse noted that his home was in complete disarray and feels that he is not safe to stay there. The patient notes things have been problematic since he was in [facility] this summer and on review of last H&P at that time he was living in an apartment without furniture and sleeping on the floor. History Information - Allergies/Home Medication List Allergies/Adverse Reactions: Penicillins Allergy (Verified 05/03/18 13:53) Swelling/neck,face,throat shellfish derived Allergy (Verified 04/29/18 15:40) Home Medications: Carbidopa/Levodopa [Carbidopa-Levodopa 25-100 Tab] 2 each PO HS 07/31/17 [Last Taken 05/21/18] Gabapentin [Neurontin 300 MG (*)] 300 mg PO HS 04/29/18 [Last Taken 05/21/18] Melatonin [Melatonin 3 MG (*)] 12 mg PO HS PRN 04/29/18 [Last Taken 05/21/18] Metoprolol Succinate [Toprol Xl] 100 mg PO BID 04/29/18 [Last Taken 05/21/18] buPROPion XL [Wellbutrin 150mg XL] 150 mg PO DAILY 04/29/18 [Last Taken 05/21/18 ] metFORMIN HCL [Metformin HCl] 500 mg PO BID 05/22/18 [Last Taken 05/21/18] I have personally reviewed and updated: family history, medical history, social history, surgical history - Past Medical History atrial fibrillation, coronary artery disease (stent in 2005), CHF (with EF of 15 -20 and presumably due to a fib), COPD, dementia, diabetes type 2, hypertension , hyperlipidemia, psychiatric history (adhd) Additional medical history: pulmonary htn. DM foot ulcer - Surgical History Reports: coronary stent Additional surgical history: prostatectomy - Family History Positive for: non-pertinent - Social History Smoking Status: Former smoker Alcohol Use: None Drug Use: None Additional social history: lives independently, states there is no furniture in his apartment and he sleeps on the floor Review of Systems Review of Systems: ROS: 10pt was reviewed & negative except for what was stated in HPI & below Physical Exam Physical Exam: Temp Pulse Resp BP Pulse Ox 36.8 C 80 20 100/65 96 05/22/18 15:48 05/22/18 16:54 05/22/18 16:54 05/22/18 16:54 05/22/18 16:54 Constitutional: no apparent distress, appears nourished Eyes: PERRL Ears, Nose, Mouth, Throat: moist mucous membranes, hearing normal Cardiovascular: irregularly irregular, tachycardia Respiratory: no respiratory distress, no rales or rhonchi, clear to auscultation Gastrointestinal: normoactive bowel sounds, soft, non-tender abdomen Genitourinary: no bladder tenderness Skin: warm, normal color Musculoskeletal: no muscle tenderness Neurologic: AAOx3 Psychiatric: interacting appropriately, not anxious, not encephalopathic Lab Data & Imaging Review 05/22/18 15:42 05/22/18 15:42 WBC 7.12 10^3/uL (3.80-9.50) 05/22/18 15:42 RBC 5.34 10^6/uL (4.40-6.38) 05/22/18 15:42 Hgb 16.7 g/dL (13.7-17.5) 05/22/18 15:42 Hct 49.2 % (40.0-51.0) 05/22/18 15:42 MCV 92.1 fL (81.5-99.8) 05/22/18 15:42 MCH 31.3 pg (27.9-34.1) 05/22/18 15:42 MCHC 33.9 g/dL (32.4-36.7) 05/22/18 15:42 RDW 13.2 % (11.5-15.2) 05/22/18 15:42 Plt Count 263 10^3/uL (150-400) 05/22/18 15:42 MPV 10.8 fL (8.7-11.7) 05/22/18 15:42 Neut % (Auto) 74.5 % (39.3-74.2) H 05/22/18 15:42 Lymph % (Auto) 13.3 % (15.0-45.0) L 05/22/18 15:42 Chilton % (Auto) 9.7 % (4.5-13.0) 05/22/18 15:42 Eos % (Auto) 1.5 % (0.6-7.6) 05/22/18 15:42 Baso % (Auto) 0.6 % (0.3-1.7) 05/22/18 15:42 Nucleat RBC Rel Count 0.0 % (0.0-0.2) 05/22/18 15:42 Absolute Neuts (auto) 5.30 10^3/uL (1.70-6.50) 05/22/18 15:42 Absolute Lymphs (auto) 0.95 10^3/uL (1.00-3.00) L 05/22/18 15:42 Absolute Monos (auto) 0.69 10^3/uL (0.30-0.80) 05/22/18 15:42 Absolute Eos (auto) 0.11 10^3/uL (0.03-0.40) 05/22/18 15:42 Absolute Basos (auto) 0.04 10^3/uL (0.02-0.10) 05/22/18 15:42 Absolute Nucleated RBC 0.00 10^3/uL (0-0.01) 05/22/18 15:42 Immature Gran % 0.4 % (0.0-1.1) 05/22/18 15:42 Immature Gran # 0.03 10^3/uL (0.00-0.10) 05/22/18 15:42 Sodium 137 mEq/L (135-145) 05/22/18 15:42 Potassium 5.1 mEq/L (3.5-5.2) 05/22/18 15:42 Chloride 106 mEq/L (97-110) 05/22/18 15:42 Carbon Dioxide 25 mEq/l (22-31) 05/22/18 15:42 Anion Gap 6 mEq/L (6-14) 05/22/18 15:42 BUN 24 mg/dL (7-23) H 05/22/18 15:42 Creatinine 1.4 mg/dL (0.7-1.3) H 05/22/18 15:42 Estimated GFR 48 05/22/18 15:42 Glucose 114 mg/dL (70-100) H 05/22/18 15:42 Calcium 9.8 mg/dL (8.5-10.4) 05/22/18 15:42 POC Troponin I 0.14 ng/mL (0.00-0.08) H 05/22/18 16:57 NT-Pro-B Natriuret Pep 4090 pg/mL (0-450) H 05/22/18 15:42 Visualized and Interpreted Chest x-ray results: Yes Chest X-Ray results: no infiltrate Visualized and Interpreted EKG results: Yes EKG additional interpertation: a fib--rates ranging from 100-150 Assessment & Plan Assessment: Atrial fibrillation (Acute) Dehydration (Acute) Failure to thrive in adult (Acute) Renal failure (Acute) 82 yo M with MMI including CHF and A fib presenting from PCP with hypotension # hypotension: apparently as low as 60/40 at PCP but now in the low 100/70s, patient also in rapid a fib so some of the hypotension could be driven by that. Will attempt rate control as next. Also suspect he is dry by labs and history and was fluid responsive in ER, will give bolus as needed. # a fib w/rvr: on metoprolol 100mg bid at home as well as eliquis (compliance somewhat questionable) and currently with poor rate control as above, not symptomatic. Will give IV dilt x 1 and if tolerates start dilt gtt, if bp worsens with dilt will need to consider amio or digoxin, will ask cards to see in am # chronic systolic chf: with EF of 25% most recently with dilated CM, followed by cardiology, will hold lisinopril, does not appear volume overloaded # nannette: creatinine of 1.4 up from a baseline of closer to 0.9, in the setting of hypotension and reported poor po intake so likely pre renal and HD mediated # CAD: no complaints of chest pain, will continue home medications--holding metop while on dilt and may not tolerated the current dose of 100 bid # ? FTT: sounds as though patient is currently living in a situation where his home is filthy, he does not have furniture, will ask CM to get involved and look into whether or not he may need snf # dementia: with memory issues and some perhaps decision making problems but otherwise relatively mild # DM2: will start SSI # observation status Patient new to my care. Old records reviewed and summarized as above. Care plan reviewed with ER doctor as above.
[2018-05-22] MEDS ORDERED: DILTIAZEM 25 MG/5 ML VIAL IVP ONE (18:30)
[2018-05-22] MEDS ORDERED: MELATONIN 3 MG TAB PO PRN (22:00)
[2018-05-22] MEDS: HYDROCODONE/APAP 5/325 TAB PO PRN (22:01)
[2018-05-22] MEDS: APIXABAN 5 MG TAB PO SCH (22:06)
[2018-05-22] MEDS: GABAPENTIN 300 MG CAP PO SCH (22:06)
[2018-05-22] MEDS: CARBIDOPA/LEVODOPA 25 MG/100 MG TAB PO SCH (22:06)
[2018-05-23 04:39] LABS: PLATELET COUNT 182 10^3/uL (150-400)
[2018-05-23] MEDS: buPROPion XL 150 MG TAB PO SCH (11:02)
[2018-05-23] MEDS: APIXABAN 5 MG TAB PO SCH ×2 (11:02→20:43)
[2018-05-23] MEDS ORDERED: DIGOXIN 500 MCG/2 ML AMP IVP ONE (13:12)
[2018-05-23] MEDS ORDERED: NS 1,000 ML IV ONE (17:55)
--- NOTE | 2018-05-23 18:25 | ASMTCMCOM ---
CM Note CM Note Notes: Reviewed chart. Per unit rounds and MD report, pt left [facility] over the summer and has been living in an apartment independently. There are concerns regarding pt's safety. The pt does not have any furniture in his apartment, no bed, no chair. The pt has a diabetic foot ulcer, and has not been followed for wound care. Pt was previously open with [facility] ([facility]), but refused services from the home care agency. Per multiple reports, pt failed his April discharge and is in need of additional services. CM will need to further investigate pt's living arrangements and resources. Per Dr. Gregg, pt needs assistance obtaining furniture and additional support. Pt will likely require SNF upon discharge. CM will continue to follow. Discharge Plan: To be determined Date Signed: 05/23/2018 06:25 PM Electronically Signed By:Yi Calderon RN
--- NOTE | 2018-05-23 19:14 | HOSPPROG ---
Hospitalist Progress Note Assessment/Plan: DIAGNOSES: * rapid A Fib in pt with chronic likely permanent AFib * Hypotension, ? cause, perhaps due to the AFib but not terribly fast and -no signs of infection, bleeding, PE, valvular disease, ischemia -does have some parkinsonism, ? if some autonomic issues * Hx of severe cardiomyopathy 25% EF without signs of acute CHF at present * Acute Kidney Injury * Chronic Diabetic Foot Ulcer, ongoing requiring wound care -recent infection of that wound, no sign of infection at present * Hx of CAD, HTN * DM2 -sugars ok so far; he can probably do alright on metformen but will need to follow renal fxn closely * Social issues: pt lives alone in a financially assisted apartment with NO furniture, fairly isolated no local family but states some friends. It is not clear what his ability to comply with meds and diet issues is. It is also not clear what happended as far as the plans we set up at last discharge for ongoing wound care of his foot ulcer. PLANS: * continue gently hydration * continue to hold metoprolol for now (but given his high dose 200/day could develop rebound HTN) * will give some digoxin for now for rate control * follow closely for CHF * I have reviewed in Detail with Dr Анна Araujo; we will consider cardioversion attempt in AM, or at any time he becomes unstable * continue anticoagulation * I have reviewed with child support case officer: A) we will again see if there are any local resources that could help him get some furniture; also B) asked child support case officer to investigate what contact home care had with him after last admission and what their observations are re: his state of living and health in his apt. Seen by me today on hospitalist rounds and multidisc rounds SUBJ: feels "great", states much better than yest and back to his baseline no pain, sob, palps OBJ: vitals: this morning and much of day his BPs remained quite low off B Waldemar, though this evening BPs are much better; HR is better controlled after a dose of 0.5 digoxin. Resps normal, no fever Manager Investigations: all A Fib, rate was 120-130s this am, now 95-110 after one dose digoxin Exam: alert oriented relaxed, good energy; I did observe him up walking w walker and PT today in hallway (despite low BPs) and he looked as good on his feet as when we discharged him 3 weeks ago skin warm dry mildly pale no cyanosis resps easy, lungs diminished but clear no jvd heart rapid irregular abd soft nondistended nontender limbs: no leg edema; he has mild bilateral charcot foot changes and the ulcer noted on lateral foot during April admission is still present but currently with no signs of infection, fluid collection, or other complication. Approx 1 cm diameter on lateral aspect of foot at the charcot deformity. IV site looks ok Lab data: Creat down to 1.2 and BUN better otherwise all stable chem and cbc, normal troponin despite Hypotension Objective: Vital Signs Temp Pulse Resp BP Pulse Ox 36.4 C 94 12 107/87 H 90 L 05/23/18 15:04 05/23/18 17:59 05/23/18 15:04 05/23/18 18:12 05/23/18 15:04 Laboratory Results 05/23/18 03:38 05/23/18 03:38 05/22/18 05/23/18 05/24/18 06:59 06:59 06:59 Intake Total 650 750 Output Total 500 275 Balance 150 475 - Time Spent With Patient Time Spent with Patient: greater than 35 minutes Time Spent with Patient: Greater than 35 minutes spent on this patients care, greater than 50% of time spent counseling, educating, and coordinating care regarding the above mentioned plan. ICD10 Worksheet Patient Problems: Problems Problem Status Onset Atrial fibrillation Acute Dehydration Acute Failure to thrive in adult Acute Renal failure Acute Elevated troponin Acute
[2018-05-23] MEDS ORDERED: LACTULOSE 20 GM/30 ML UDCUP PO PRN (19:39)
[2018-05-23] MEDS ORDERED: POLYETHYLENE GLYCOL 3350 17 GM PKT PO PRN (19:39)
[2018-05-23] MEDS ORDERED: BISACODYL 10 MG SUPP PR PRN (19:39)
[2018-05-23] MEDS ORDERED: MAGNESIUM HYDROXIDE 30 ML UDCUP PO PRN (19:39)
[2018-05-23] MEDS: CARBIDOPA/LEVODOPA 25 MG/100 MG TAB PO SCH (20:42)
[2018-05-23] MEDS: GABAPENTIN 300 MG CAP PO SCH (20:43)
[2018-05-23] MEDS: HYDROCODONE/APAP 5/325 TAB PO PRN (20:43)
[2018-05-23] MEDS: SENNOSIDES/DOCUSATE SODIUM TAB PO SCH (20:57)
[2018-05-23] MEDS ORDERED: DIGOXIN 250 MCG TAB PO ONE (21:00)
[2018-05-24] MEDS: SENNOSIDES/DOCUSATE SODIUM TAB PO SCH ×2 (08:45→21:23)
[2018-05-24] MEDS: APIXABAN 5 MG TAB PO SCH ×2 (08:45→21:23)
[2018-05-24] MEDS: buPROPion XL 150 MG TAB PO SCH (08:45)
--- NOTE | 2018-05-24 12:29 | GCON ---
CARDIOLOGY CONSULT DATE OF CONSULTATION: 05/24/2018 PRIMARY CARE DOCTOR: Dr. Vianney Sanchez PRIMARY TANDEM OPERATOR: Dr. Ethel Perez CHIEF COMPLAINT: Atrial fibrillation and hypotension. HISTORY OF PRESENT ILLNESS: We were asked by Dr. Gregg to visit with the patient. The patient is a n 82-year-old male with what appears to be permanent atrial fibrillation, history of left atrial appe ndage thrombus, remote LAD stenting, cardiomyopathy, and systolic heart failure. He is known to ga evelia rom a previous admission in July of this year. He was admitted through the ER from Dr. Sanchez's office on 05/22 with atrial fibrillation and rapid ventricular response, hypotension with systolics in the 60s to 70s, and also concerns about his carter ng situation. Troponin was minimally elevated. He was in acute renal failure, which has improved wi th hydration. His beta-blockers have been held and he was given 2 digoxin doses 500 mcg and 250 mcg, which has improved his heart rate, blood pressure now above 100 systolic. Upon my evaluation this morning, he reports no symptoms. He is not dizzy. No palpitations, chest pa in, or shortness of breath. He has not had lower extremity edema. He does know that he is taking me toprolol and Eliquis. He reports taking these medications twice daily, and he states that he has not had trouble filling his medications. No overt bleeding problems on the Eliquis. ALLERGIES: Penicillin and shellfish. PAST MEDICAL HISTORY: 1. Atrial fibrillation that was first diagnosed in July of this year. He did have a KATELYN at that time showing left atrial appendage thrombus, therefore, did not have a cardioversion. He was starte d on Eliquis. 2. Cardiomyopathy with most recent ejection fraction of 25% in April. 3. History of remote LAD stenting with patency of the stent based on angiogram in July of this y ear. 4. Parkinsonism. 5. Valvular heart disease with moderate mitral and tricuspid regurgitation. 6. Diabetes complicated by foot ulcer. 7. Depression. SURGICAL HISTORY: Laminectomy and bilateral total knee replacement. OUTPATIENT MEDICATIONS: Toprol-XL 100 mg twice daily, metformin, melatonin, Zestril 10 mg daily, noemi apentin, Sinemet, Wellbutrin, and Eliquis 5 b.i.d. SOCIAL HISTORY: The patient lives alone. He does not have family. He is currently in an apartment that he reports is unfurnished. Apparently, he was living in [facility] over the summer, but did not like it there. He does not smoke cigarettes. He does drink 1 martini nightly. FAMILY HISTORY: Not applicable to the current case. PHYSICAL EXAM: VITAL SIGNS: Blood pressure currently 104/55, heart rate has been in the low 70s to low 100s overnight. Oxygen saturation is 96% on room air. He is afebrile. GENERAL: Mildly disheve led older male in no acute distress. HEENT: Poor dentition. Sclerae anicteric. CARDIOVASCULAR: J TOOL ROOM LATHE OPERATOR is less than 10. HEART: Irregularly irregular rhythm. Soft early systolic murmur at the apex. No S3. LUNGS: Clear without wheeze, rhonchi, or rales. EXTREMITIES: No lower extremity edema. NE URO: Alert and orient x3. Appropriate mood and affect. No focal neurologic deficits. LABORATORY/IMAGING: CBC normal and basic metabolic panel normal, except for glucose of 177. His adm ission creatinine is 1.4 and it is 1.0 today. Urinalysis showed trace ketones and urobilinogen. EKG reviewed by me shows atrial fibrillation with ventricular response of 120 beats per minute. No i schemia. Chest x-ray reviewed by me: Minimal scarring left lower lobe. No acute cardiopulmonary process. I have reviewed his KATELYN from July 2017 and TTE from April 2018. He has had an improvement in his ejection fraction from approximately 15% to 25%. Moderate mitral and tricuspid regurgitation. Catheterization in July 2017, shows patency of his the LAD stent with mild stenosis pre and post stent. 50% circumflex disease, and 40% to 50%ostial OM 1. These films have been personally reviewed by me. ASSESSMENT/PLAN: 82-year-old male with persistent atrial fibrillation, coronary disease, cardiomyopa thy, now admitted with hypotension and atrial fibrillation. It seems that his hypotension is a combi nation of dehydration and his rapid atrial fibrillation. 1. Atrial fibrillation: Rate control is slightly better with 2 doses of digoxin; however, I do not think this is an ideal long-term medication for him. We will reintroduce a beta prosper in the form of low-dose Coreg. This is also important for his cardiomyopathy. It is incongruent how his heart r ate was fast, but his blood pressure was low if he was actually taking 100 mg b.i.d. of metoprolol. Continue Eliquis, which the patient reports compliance with. He ate this morning. We will plan for a KATELYN, followed by possible cardioversion if his past left atrial thrombus has resolved. This was di scussed in detail with the patient and is willing to proceed. This will be scheduled for tomorrow. I have also asked him to eliminate alcohol for the time being to see if this improves his cardiomyopa thy and atrial fibrillation.. 2. Cardiomyopathy: His BNP is elevated in the range that it has been on previous admissions. He do es not appear volume overloaded. He denies dyspnea. Not on Lasix as an outpatient. Given his hypot ension and labs suggestive of volume depletion, will hold off on diuretics at this time. It is likel y that his cardiomyopathy is mostly related to poorly controlled atrial fibrillation, which is why it is reasonable to consider KATELYN guided cardioversion as per #1. 3. Diabetes: Followed by Internal Medicine. 4. Percutaneous coronary intervention of the left anterior descending remotely: Catheterization ear lier this year shows patency of the stent. Borderline troponin here, likely related to atrial fibril lation and not acute coronary syndrome. We will start low-dose atorvastatin here. 5. Valvular heart disease: He has moderate mitral and tricuspid regurgitation. This may improve wi th hoahaoism of sinus rhythm. 6. Suboptimal living situation: The patient reports he lives alone, per choice; however, he does no t have furniture. He reports medication compliance, but I am not convinced that he is fully complian t. Case management involved. Thanks for consult. Will follow with you. /[id number]/MODL
--- NOTE | 2018-05-24 12:42 | HOSPPROG ---
Hospitalist Progress Note Assessment/Plan: DIAGNOSES: * rapid A Fib in pt with chronic likely permanent AFib * Hypotension, now resolved -? cause, perhaps due to the AFib (has known very low EF) -no signs of infection, bleeding, PE, valvular disease, ischemia -does have some parkinsonism, ? if some autonomic issues * Hx of severe cardiomyopathy 25% EF without signs of acute CHF at present despite IV fluid administration * Acute Kidney Injury improving nicely with rate control and hydration * Chronic Diabetic Foot Ulcer, ongoing requiring wound care -recent infection of that wound, no sign of infection at present * Hx of CAD, HTN * DM2 -sugars ok so far; he can probably do alright on metformen at this time * Social issues: pt lives alone in a financially assisted apartment with NO furniture, fairly isolated no local family but states some friends. It is not clear what his ability to comply with meds and diet issues is. It is also not clear what happended as far as the plans we set up at last discharge for ongoing wound care of his foot ulcer. PLANS: * DC IV fluids * Continue some digoxin and will add a low-dose of metoprolol at this time * follow closely for CHF * I have reviewed in Detail with Dr Анна Araujo again today; will likely attempt cardioversion tomorrow with KATELYN though he has a history of atrial thrombus in the past will need to make sure that he looks good on the echo * continue anticoagulation * I have reviewed with outpatient case manager: A) we will again see if there are any local resources that could help him get some furniture; also B) asked outpatient case manager to investigate what contact home care had with him after last admission and what their observations are re: his state of living and health in his apt. Seen by me today on hospitalist rounds and multidisc rounds SUBJ: Feels pretty much back to normal at this time No chest pain or dyspnea today, not lightheaded, eating well OBJ: vitals: Through the night his blood pressures were good and they remain good this morning. Heart rate was in good range in the 90s through the night and early this morning but now in the later morning is up into the 120s to 130 again. No fever respirations normal and no hypoxemia Livestock Nutrition Territory Manager: AFib, heart rate in good control overnight but around mid morning started back to some rapid heart rates Exam: alert oriented relaxed, good energy; again I did observe him up walking in the hallway today and he did quite well like he did yesterday skin warm dry mildly pale no cyanosis resps easy, lungs diminished but clear no jvd heart rapid irregular abd soft nondistended nontender limbs: no leg edema; he has mild bilateral charcot foot changes and the ulcer noted on lateral foot during April admission is still present but currently with no signs of infection, fluid collection, or other complication. Approx 1 cm diameter on lateral aspect of foot at the charcot deformity. IV site looks ok Lab data: Creat down to 1.0 and BUN better Objective: Vital Signs Temp Pulse Resp BP Pulse Ox 36.7 C 120 H 14 107/66 98 05/24/18 10:57 05/24/18 10:57 05/24/18 10:57 05/24/18 10:57 05/24/18 10:57 Laboratory Results 05/23/18 03:38 05/24/18 03:21 05/23/18 05/24/18 05/25/18 06:59 06:59 06:59 Intake Total 650 1850 Output Total 500 1225 Balance 150 625 - Time Spent With Patient Time Spent with Patient: greater than 35 minutes Time Spent with Patient: Greater than 35 minutes spent on this patients care, greater than 50% of time spent counseling, educating, and coordinating care regarding the above mentioned plan. ICD10 Worksheet Patient Problems: Problems Problem Status Onset Atrial fibrillation Acute Dehydration Acute Failure to thrive in adult Acute Renal failure Acute Elevated troponin Acute
[2018-05-24] MEDS: HYDROCODONE/APAP 5/325 TAB PO PRN ×2 (15:10→21:23)
[2018-05-24] MEDS: CARVEDILOL 3.125 MG TAB PO SCH (18:18)
--- NOTE | 2018-05-24 19:09 | PDMN ---
Medical Necessity Medical necessity: [facility] [place] M505 afib ongoing monitoring and tx of chronic a fib , hypotension, in pt with PMH - CAD, severe cardiomyopathy, HTN, LAURA, Chronic diabetic foot ulcer, pt lives alone. status changed to INPT 05/24/18 for ongoing med nec. further monitoring and tx of afib. , CHF-poss KATELYN
[2018-05-24] MEDS: CARBIDOPA/LEVODOPA 25 MG/100 MG TAB PO SCH (21:23)
[2018-05-24] MEDS: GABAPENTIN 300 MG CAP PO SCH (21:23)
[2018-05-25 04:29] LABS: INR 1.27 (0.83-1.16); PROTIME(PATIENT) 16.1 SEC (12.0-15.0)
[2018-05-25] MEDS ORDERED: NS 1,000 ML IV ONE (06:00)
[2018-05-25] MEDS ORDERED: ATROPINE SULFATE 1 MG/10 ML SYR IVP ONE (06:00)
[2018-05-25] MEDS: ATORVASTATIN CALCIUM 20 MG TAB PO SCH (09:28)
[2018-05-25] MEDS: buPROPion XL 150 MG TAB PO SCH (09:28)
[2018-05-25] MEDS: APIXABAN 5 MG TAB PO SCH ×2 (09:28→21:18)
[2018-05-25] MEDS: CARVEDILOL 3.125 MG TAB PO SCH ×2 (09:28→18:41)
[2018-05-25] MEDS: SENNOSIDES/DOCUSATE SODIUM TAB PO SCH ×2 (09:29→21:18)
--- NOTE | 2018-05-25 09:32 | SOAPPROG ---
CANDIDO Progress Note Assessment/Plan: Assessment: 1. Atrial fibrillation. In reviewing the records he has had evidence of atrial fibrillation dating back to this last July. It is unclear whether his atrial fibrillation is paroxysmal or longstanding persistent. He was admitted with poor rate control and hemodynamic instability which has improved following hydration and adjustment of his medications. He has been on systemic anticoagulation in the form of Eliquis which, per his report, he has been compliant with. A transesophageal echocardiogram done this last July indicated the possibility of a left atrial appendage thrombus. 2. Cardiomyopathy. The etiology is thought to be related to his atrial fibrillation with poor rate control. He does have an underlying history of ischemic heart disease however his ejection fraction reduction is disproportionate to the severity of his CAD. Fortunately, he appears stable without overt congestive heart failure at the present time. 3. CAD. As described above he has had previous LAD stenting. He is not manifesting any current signs or symptoms of underlying ischemia. 4. Psychosocial issues. Apparently he has no family support in the local area here. He recently moved to low income housing. Apparently he has no furniture and is currently sleeping on the floor. Plan: 1. Plans are for a transesophageal echocardiogram today and possible cardioversion depending on whether not he has residual left atrial appendage thrombus. 2. Once sinus rhythm is restored we will continue our efforts at up titrating his medications towards guideline directed medical therapy. 3. Hopefully, social work can get involved and help out regarding his current living situation. 4. We will continue medical therapy for secondary prevention of his underlying CAD. 05/25/18 09:35 Subjective: The patient was seen and examined. His medical record was reviewed. I reviewed his previous echocardiograms. He has a history of coronary artery disease with previous LAD stenting. Additionally, he has a history of atrial fibrillation with the chronicity being unknown. He has a known cardiomyopathy with disproportionate ejection fraction to his underlying vascular disease. This is thought to be on the basis of his atrial fibrillation and poor rate control. He was admitted to the hospital on the with poorly controlled atrial fibrillation and hypotension. With hydration and adjustments of his medications his hemodynamics have improved. Currently his heart rates are in the low 1 teens with systolics above 100 mmHg.. He has no symptoms of palpitations and denies dyspnea. He also notes no anginal quality chest discomfort. There are plans for him to have a KATELYN and cardioversion today. Objective: Vital Signs Temp Pulse Resp BP Pulse Ox 36.5 C 97 19 127/81 H 92 05/25/18 08:00 05/25/18 08:00 05/25/18 08:00 05/25/18 08:00 05/25/18 08:00 Laboratory Results 05/25/18 03:32 05/24/18 05/25/18 05/26/18 05:59 05:59 05:59 Intake Total 1400 Output Total 375 Balance 1025 PT 16.1 SEC (12.0-15.0) H 05/25/18 03:32 INR 1.27 (0.83-1.16) H 05/25/18 03:32 Physical Exam - Physical Exam General Appearance: WD/WN, no apparent distress, other (Chronically ill) Neck: non-tender, full range of motion Respiratory: chest non-tender, lungs clear, normal breath sounds Cardiac/Chest: irregularly irregular, No edema, No gallop, No JVD Peripheral Pulses: 2+: carotid (R), carotid (L) Abdomen: non-tender, soft Male Genitalia: deferred Rectal: deferred Neuro/Psych: alert, oriented x 3 ICD10 Worksheet Patient Problems: Problems Problem Status Onset Atrial fibrillation Acute Dehydration Acute Failure to thrive in adult Acute Renal failure Acute Elevated troponin Acute
--- NOTE | 2018-05-25 14:23 | ASMTCMCOM ---
CM Note CM Note Notes: I spoke with patient about the concerns re: his living situation and discharge plan. Patient says that his furniture is in a storage unit and he "has not had time" to move it to his apartment. He says that he is going to use [employer] to move his things. He also says his friends Don and Laura can help. When I asked him about refusing [facility] after his last admission, he said that this was not true and he would be happy for the help. He also said that he would go to rehab; however, he has a high deductible health insurance plan and would still be responsible for some of the cost of SNF until he spends about $4000 toward his deductible. Patient is to have a KATELYN/Cardioversion today. Discharge planning will continue. Case Management will follow. Date Signed: 05/25/2018 12:01 PM Electronically Signed By:Brittani Yeboah RN
--- NOTE | 2018-05-25 14:29 | PDANEPAE ---
ANE History of Present Illness 82 year old male for KATELYN and cardioversion of A-fib. History of CAD, HTN, DM. ANE Past Medical History - Cardiovascular History Hx Hypertension: Yes Hx Arrhythmias: Yes Hx Chest Pain: No Hx Coronary Artery / Peripheral Vascular Disease: Yes Hx CHF / Valvular Disease: Yes Hx Palpitations: No - Pulmonary History Hx COPD: No Hx Asthma/Reactive Airway Disease: No Hx Recent Upper Respiratory Infection: No Hx Oxygen in Use at Home: No Hx Sleep Apnea: No - Endocrine History Hx Diabetes: No - Chronic Pain History Chronic Pain: Yes ANE Review of Systems Review of systems is: negative Review of Systems: ANE Patient History - Allergies Allergies/Adverse Reactions: Penicillins Allergy (Verified 05/03/18 13:53) Swelling/neck,face,throat shellfish derived Allergy (Verified 04/29/18 15:40) - Home Medications Home Medications: Carbidopa/Levodopa [Carbidopa-Levodopa 25-100 Tab] 2 each PO HS 07/31/17 [Last Taken 05/21/18] Gabapentin [Neurontin 300 MG (*)] 300 mg PO HS 04/29/18 [Last Taken 05/21/18] Melatonin [Melatonin 3 MG (*)] 12 mg PO HS PRN 04/29/18 [Last Taken 05/21/18] Metoprolol Succinate [Toprol Xl] 100 mg PO BID 04/29/18 [Last Taken 05/21/18] buPROPion XL [Wellbutrin 150mg XL] 150 mg PO DAILY 04/29/18 [Last Taken 05/21/18 ] metFORMIN HCL [Metformin HCl] 500 mg PO BID 05/22/18 [Last Taken 05/21/18] - Smoking Hx Smoking Status: Former smoker - Alcohol Use Alcohol Use: None ANE Labs/Vital Signs - Labs Result Diagrams: 05/23/18 03:38 05/25/18 03:32 - Vital Signs Blood Pressure: 121/84 Heart Rate: 86 Respiratory Rate: 14 O2 Sat (%): 94 Height: 180.34 cm Weight: 87.2 kg ANE Physical Exam - Airway Neck exam: FROM Mallampati Score: Class 3 Mouth exam: poor dentition - Pulmonary Pulmonary: no respiratory distress - Cardiovascular Cardiovascular: irregularly irregular - ASA Status ASA Status: III ANE Anesthesia Plan Anesthesia Plan: MAC
[2018-05-25] MEDS ORDERED: PROPOFOL 200 MG/20 ML VIAL ONE (14:30)
[2018-05-25] MEDS ORDERED: LIDOCAINE 1% 5 ML SDV ONE (14:30)
--- NOTE | 2018-05-25 14:50 | WOCRNPDOC ---
WOCRN Advanced Assessment Note - Skin Integrity Problem, Advanced Assess Right Lateral Foot Diabetic Ulcer Dressing Type: Allevyn Life Dressing Description: Clean/Dry, Intact Exudate Amount: Moderate Exudate Color: Yellow Exudate Characteristic(s): Seropurulent Integumentary Issue Intervention: Dressing Changed, Silver Gel Applied Mimi Wound Tissue: Macerated, Swollen, Altered Sensitivity (limited sensitivity) Mimi Wound Swelling: Moderate Wound Bed Color: [place], Red, Yellow Wound Bed Constitution: Red/[place] - Non Granular Tissue, Undermining (0.1cm circumferentially), Adhered Slough, Loose Slough Site Odor: Moderate, Foul Pulse Location & Description: patient's skin marked by floor RN for doppler check Extremity Temperature: Cool Skin Integrity Problem Comment: Patient reports decreased sensitivity to the area. On plantar surface on the foot, there is a darkened area of skin approximately 0.3x1x0, but no open wound noted. Wound bed cleaned with normal saline and patted dry with gauze. Wound has foul smelling yellow exudate, and wound bed has attached slough. Unable to visualize entire wound bed due to slough, but soft tissue palpable with q tip. Undermining present around entire wound edge. Mimi wound skin is quite white and edges of wound are raised. On previous visit, patient's wound was much smaller. Patient had consult with Dr. Monica Munson on previous visit, but patient did not follow up outpatient per train master at [facility]. Recommend podiatry consult. Wound care will follow. RN Mo in room for care.
--- NOTE | 2018-05-25 15:12 | PDTEE1 ---
KATELYN Cardioversion Procedure Procedure: electrical cardioversion, transesophageal echo Indications: atrial fibrillation Consent: signed and in chart Anticoagulation: eliquis Procedural Details: Pads were placed in anterior-posterior position. KATELYN probe was advanced and standard images obtained. There is no evidence of left atrial or left atrial appendage thrombus. Synchronized cardioversion attempt #1: 200J Synchronized cardioversion attempt #2: 300J Conclusions: successful cardioversion (The patient maintained SR for approximately 2 minutes prior to reverting to AFIB.) Patient Problems: Problems Problem Status Onset Atrial fibrillation Acute Dehydration Acute Failure to thrive in adult Acute Renal failure Acute Elevated troponin Acute
[2018-05-25] MEDS ORDERED: NALOXONE HCL 0.4 MG/ML INJ IVP PRN (15:17)
--- NOTE | 2018-05-25 15:17 | POSTANESTH ---
Post Anesthetic Evaluation Cardiovascular Status: Similar to Pre-Op Cond Respiratory Status: Normal, Stable Level of Consciousness/Mental Status: Mildly Sleepy, Arousable Pain Control: Adequate, Prn Tx Ordered Nausea/Vomiting Control: Adequate, Prn Tx Ordered Complications Possibly Related to Anesthesia: None Noted
--- NOTE | 2018-05-25 16:26 | ECHO ---
[email or web address] [address] [address] Main: [phone] Fax: Transesophageal Echocardiography Name: VINNIE SWIFT MR#: [id number] Study Date: 05/25/2018 Study Time: 02:44 PM Date of : 1935 Age: 82 year(s) Height: ( ) Weight: ( ) BSA: Gender: Male Examination: KATELYN Indication: Pre Cardioversion Image Quality: Contrast: Requested by: Анна Araujo Heart Rate: Rhythm: Atrial fibrillation BP: / Procedure Staff Chief Physical Therapist: Corona Romero RD Reading Physician: Crow Forrest MD Requesting Provider: KATELYN Exam Details Conclusions: Mildly dilated left ventricle. Mildly reduced systolic LV function. The ejection fraction is visually estimated to be 40 %. The left atrium is mildly dilated. No thrombus in left appendage. Trivial to mild mitral regurgitation. The patient subsequently underwent cardioversion. Sinus rhythm was restored for approximately 2 min before the patient lapsed back to atrial fibrillation. Measurements: Chambers Valvular Assessment AV/MV Valvular Assessment TV/PV Normal Normal Normal Name Value Range Name Value Range Name Value Range Visual EF: 40 % Additional Measurements: Findings: Left Ventricle: Mildly dilated left ventricle. Mildly reduced systolic LV function. The ejection fraction is visually estimated to be 40 %. Right Ventricle: Normal size right ventricle. Normal RV function. Patient: VINNIE SWIFT Study Date: 05/25/2018 Page 1 of 2 02:44 PM Left Atrium: The left atrium is mildly dilated. Left Atrial Appendage: Good color flow doppler in the left atrial appendage. No thrombus in left appendage. Right Atrium: The right atrium is normal in size. Mitral Valve: The mitral valve is normal in appearance and function. Trivial to mild mitral regurgitation. Aortic Valve: The aortic valve is tri-leaflet. Mild aortic valve regurgitation is present. Tricuspid Valve: The tricuspid valve appears normal. Pulmonic Valve: The pulmonic valve is normal in appearance and function. Aorta: The aorta is normal. Pericardium: No pericardial effusion. l1n (No Signature Object) Patient: VINNIE SWIFT Study Date: 05/25/2018 Page 2 of 2 02:44 PM [id number]
--- NOTE | 2018-05-25 17:45 | HOSPPROG ---
Hospitalist Progress Note Assessment/Plan: DIAGNOSES: * rapid A Fib in pt with chronic likely permanent AFib -the patient had no thrombus on KATELYN today. He was successfully cardioverted sinus rhythm but this lasted only 2 min and was not read tried. * Hypotension, now resolved -? cause, perhaps due to the AFib (has known very low EF) -no signs of infection, bleeding, PE, valvular disease, ischemia -does have some parkinsonism, ? if some autonomic issues * Hx of severe cardiomyopathy 25% EF without signs of acute CHF at present despite IV fluid administration * Acute Kidney Injury improving nicely with rate control and hydration * Chronic Diabetic Foot Ulcer, ongoing requiring wound care -recent infection of that wound, no sign of infection at present * Hx of CAD, HTN * DM2 -sugars ok so far; he can probably do alright on metformen at this time * Social issues: pt lives alone in a financially assisted apartment with NO furniture, fairly isolated no local family but states some friends. It is not clear what his ability to comply with meds and diet issues is. It is also not clear what happended as far as the plans we set up at last discharge for ongoing wound care of his foot ulcer. 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 Forrest whether we should consider antiarrhythmic medication * continue anticoagulation * I have reviewed with therapeutic case manager: A) we will again see if there are any local resources that could help him get some furniture; also B) asked therapeutic case manager to investigate what contact home care had with him after last admission and what their observations are re: his state of living and health in his apt. * Possible discharge next 1-2 days Seen by me today on hospitalist rounds and multidisc rounds SUBJ: Feels pretty much back to normal at this time No chest pain or dyspnea today, not lightheaded, eating well OBJ: vitals: Through the night his blood pressures were good and they remain good this morning. Heart rate was in good range in the 90s through the night and early this morning but now in the later morning is up into the 120s to 130 again. 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: AFib, heart rate in good control overnight but around mid morning started back to some rapid heart rates Exam: alert oriented relaxed, good energy; again I did observe him up walking in the hallway today and he did quite well like he did yesterday skin warm dry mildly pale no cyanosis resps easy, lungs diminished but clear no jvd heart rapid irregular abd soft nondistended nontender limbs: no leg edema; he has mild bilateral charcot foot changes and the ulcer noted on lateral foot during April admission is still present but currently with no signs of infection, fluid collection, or other complication. Approx 1 cm diameter on lateral aspect of foot at the charcot deformity. IV site looks ok Lab data: Stable metabolic panel Objective: Vital Signs Temp Pulse Resp BP Pulse Ox 36.3 C 84 18 136/87 H 94 05/25/18 17:08 05/25/18 17:08 05/25/18 17:08 05/25/18 17:08 05/25/18 17:08 Laboratory Results 05/25/18 03:32 05/24/18 05/25/18 05/26/18 06:59 06:59 06:59 Intake Total 1400 490 Output Total 375 Balance 1025 490 PT 16.1 SEC (12.0-15.0) H 05/25/18 03:32 INR 1.27 (0.83-1.16) H 05/25/18 03:32 - Time Spent With Patient Time Spent with Patient: greater than 35 minutes Time Spent with Patient: Greater than 35 minutes spent on this patients care, greater than 50% of time spent counseling, educating, and coordinating care regarding the above mentioned plan. ICD10 Worksheet Patient Problems: Problems Problem Status Onset Atrial fibrillation Acute Dehydration Acute Failure to thrive in adult Acute Renal failure Acute Elevated troponin Acute
[2018-05-25] MEDS: oxyCODONE IR 5 MG TAB PO PRN (18:51)
[2018-05-25] MEDS: CARBIDOPA/LEVODOPA 25 MG/100 MG TAB PO SCH (21:18)
[2018-05-25] MEDS: GABAPENTIN 300 MG CAP PO SCH (21:18)
--- NOTE | 2018-05-26 06:09 | CPEKG ---
Test Reason : OPEN Blood Pressure : / mmHG Vent. Rate : 098 BPM Atrial Rate : 000 BPM P-R Int : 214 ms QRS Dur : 085 ms QT Int : 443 ms P-R-T Axes : 000 034 000 degrees QTc Int : 566 ms Atrial fibrillation Low voltage, extremity leads Confirmed by Gómez Bess ([id number]) on 05/26/2018 6:09:00 AM Referred By: Confirmed By:Gómez Bess
[2018-05-26] MEDS: oxyCODONE IR 5 MG TAB PO PRN (06:29)
[2018-05-26 08:32] VITALS: BP 117/71
[2018-05-26] MEDS: HYDROCODONE/APAP 5/325 TAB PO PRN (08:33)
[2018-05-26] MEDS: ATORVASTATIN CALCIUM 20 MG TAB PO SCH (08:33)
[2018-05-26] MEDS: buPROPion XL 150 MG TAB PO SCH (08:34)
[2018-05-26] MEDS: APIXABAN 5 MG TAB PO SCH (08:34)
[2018-05-26] MEDS: CARVEDILOL 3.125 MG TAB PO SCH (08:34)
[2018-05-26] MEDS: SENNOSIDES/DOCUSATE SODIUM TAB PO SCH (08:35)
[2018-05-26] MEDS ORDERED: ASPIRIN 81 MG CHEWABLE TAB PO SCH (09:00)
--- NOTE | 2018-05-26 10:31 | SOAPPROG ---
CANDIDO Progress Note Assessment/Plan: Assessment: 1. Atrial fibrillation. In reviewing the records he has had evidence of atrial fibrillation dating back to this last July. It is unclear whether his atrial fibrillation is paroxysmal or longstanding persistent. He was admitted with poor rate control and hemodynamic instability which has improved following hydration and adjustment of his medications. He has been on systemic anticoagulation in the form of Eliquis which, per his report, he has been compliant with. A transesophageal echocardiogram done this last July indicated the possibility of a left atrial appendage thrombus. 2. Cardiomyopathy. The etiology is thought to be related to his atrial fibrillation with poor rate control. He does have an underlying history of ischemic heart disease however his ejection fraction reduction is disproportionate to the severity of his CAD. Fortunately, he appears stable without overt congestive heart failure at the present time. 3. CAD. As described above he has had previous LAD stenting. He is not manifesting any current signs or symptoms of underlying ischemia. 4. Psychosocial issues. Apparently he has no family support in the local area here. He recently moved to low income housing. Apparently he has no furniture and is currently sleeping on the floor. 05/26/2018: He is doing well. Plan: 1. OK to discharge home on his current medications. 2. We will see him in the office next week. 3. Depending on his clinical course we may consider AV node ablation and Bi-V pacing. 05/26/18 10:29 Subjective: Today he is doing well. His heart rates are in the 80s. He is asymptomatic and anxious to go home. Objective: Vital Signs Temp Pulse Resp BP Pulse Ox 36.6 C 81 14 117/71 95 05/26/18 08:00 05/26/18 08:00 05/26/18 08:00 05/26/18 08:00 05/26/18 08:00 Laboratory Results 05/25/18 03:32 05/25/18 05/26/18 05/27/18 05:59 05:59 05:59 Intake Total 1400 640 Output Total 375 800 Balance 1025 -160 PT 16.1 SEC (12.0-15.0) H 05/25/18 03:32 INR 1.27 (0.83-1.16) H 05/25/18 03:32 Physical Exam - Physical Exam General Appearance: WD/WN, alert, no apparent distress EENT: PERRL/EOMI, normal ENT inspection, pharynx normal, TMs normal Neck: non-tender, full range of motion, supple, normal inspection Respiratory: chest non-tender, lungs clear, normal breath sounds Cardiac/Chest: normal peripheral pulses, irregularly irregular Peripheral Pulses: 2+: carotid (R), carotid (L), femoral (R), femoral (L), dorsalis-pedis (R), dorsalis-pedis (L) Abdomen: normal bowel sounds, non-tender, soft Male Genitalia: deferred Rectal: deferred Back: Normal inspection Skin: normal color, warm/dry Lymphatic: no adenopathy Extremities: normal range of motion, non-tender, normal inspection, normal capillary refill Neuro/Psych: no motor/sensory deficits, alert, normal mood/affect, oriented x 3 ICD10 Worksheet Patient Problems: Problems Problem Status Onset Atrial fibrillation Acute Elevated troponin Acute Dehydration Acute Failure to thrive in adult Acute Renal failure Acute
--- NOTE | 2018-05-26 10:55 | PDDCSUM ---
Discharge Summary Discharge Summary: DISCHARGE DIAGNOSES: * acute hypotension uncertain etiology, considered possibly due to rapid atrial fibrillation in the setting of cardiomyopathy * acute episode of rapid atrial fibrillation in the setting of permanent atrial fibrillation * acute kidney injury due to above, resolved * chronic ongoing diabetic foot ulcer currently without signs of infection * severe cardiomyopathy with known ejection fraction 25% * diabetes mellitus type 2, currently controlled * complex social issues, suspected cor poor compliance with medications CONSULTANTS: Dr. Анна Araujo and Dr. Crow Forrest Wound care nurse PROCEDURES: KATELYN, attempted electrical cardioversion (achieved sinus rhythm which lasted only seconds) HOSPITAL COURSE SUMMARY: This patient was sent in from his primary care physician's office with rapid heart rate and blood pressure of 60/40. The patient was relatively asymptomatic and did know he was having any problems. On arrival here he was still hypotensive in the same range and had rapid atrial fibrillation. There is mild renal insufficiency but no evidence of heart failure, no findings of cardiac ischemia, and no signs of infection. He was admitted the hospital and treated with some IV hydration. It was unclear what the source of his hypotension was. Is felt possible that it was from his rapid atrial fibrillation. The patient does have a severe cardiomyopathy with an EF measured at 25% last month. Is suspected that his cardiac function is unable to tolerate such fast heart rates as he was having. It is possible that he was noncompliant with his beta-prospre, but the cause of his new rapid atrial fibrillation in this episode was uncertain. Because of his hypotension his lisinopril and metoprolol were held. He was given IV fluids and digoxin and we achieved normalization of blood pressure and good control of heart rate with these measures. The patient has been taking Eliquis as an anticoagulant. He was taken to the heart lab where he had a KATELYN showing absence of any thrombus so cardioversion was attempted. He received 2 doses of 200 joules and with the 2nd did convert to sinus rhythm but this lasted only few seconds. At this point he is presumed to be in permanent atrial fibrillation. The patient is now stabilized and ready for discharge to home. However he will need very close follow-up. I suspect that the cause for his 2 recent hospitalizations is that he had previously been living in a nursing facility but just recently moved into a new apartment on his own. I think he is probably not terribly compliant with his medicines on his own as he appears to probably have some degree of chronic cognitive impairment. I reviewed this in detail with Dr. Marito Forrest. With switched him from metoprolol to Coreg and lowered his lisinopril dose. If were able to manage his heart rate and blood pressures and keep him out of the hospital with these medicines and with very careful follow-up, this may be an adequate plan. However if we are unable to manage his problems with these medicines he might be a good candidate for placement of a pacemaker and an AFib ablation. PENDING TEST RESULTS: None MEDICATION CHANGES: Metoprolol is discontinued and Coreg 3.125 twice daily is started Lipitor is started Lisinopril is decreased from 10 mg daily to 5 mg daily FOLLOW-UP PLAN: With Dr. Marito Forrest in Cardiology Clinic next week At wound Care Clinic for his foot Greater than 35 minutes bedside and care coordination time today
--- NOTE | 2018-05-26 14:21 | ASMTLACE ---
MARTHAE Acuity / Level of Answers: Yes Care: Did the patient have an inpatient admission? Comorbidities - select Answers: Coronary Artery Disease all that apply Dementia Diabetes (uncontrolled or controlled) Moderate or severe liver or renal disease Other Notes: MS, afib, FTT, diabetic ulcer, hyperlipidemia, psy ch hx (ADHD) # of Emergency department Answers: 3-4 visits in the last 6 months Social determinants Answers: Lack of community resources and/or lack of social support (no pcp, lives alone, transportation, yung d) Score: 21 Date Signed: 05/26/2018 02:20 PM Electronically Signed By:Tyra Matthew
--- NOTE | 2018-05-26 14:25 | ASMTCMCOM ---
CM Note CM Note Notes: Spoke with pt in the room, as pt is to discharge today and has no furniture in the home. Pt gave CM permission to contact his friend Vern who formerly was MDPOA and states that pt is unable to follow-through on verbal commitments he makes, possibly due to ADD. Don states he has tried to help pt obtain furniture and give other support, however, pt is unable to follow through or manage his finances. Friend states he arranged for pt to move into skilled nursing care, however pt declined because "he doesn't want to be on medicaid and live on only $75/month". Don is no longer willing to be MDPOA due to pt's inability to follow-through on commitments. Therapies are recommending pt go to SNF and pt is agreeable, [facility] accepted, however, pt will have to pay $4000 out of pocket toward [facility] deductible first and pt states he is unable to at this time. CM initiated reconsideration of plan to move to assisted living, however, pt states he has only been in apt for "two weeks" and hasn't had a chance to make that plan work and would like that opportunity. [facility] contacted and has accepted patient. CM explained to pt that on last d/c [facility] was arranged, but pt refused to comply with "home bound" requirement and thus was unable to receive services. Pt expressed understanding and agreed to order groceries for delivery and remain home bound during services. Pt is still driving and has his own car. Pt has belongings in a storage unit and is unsure if it includes furniture. Pt has name of moving company who can move the belongings, however, pt has not called to arrange it. CM told pt about inexpensive mattresses at [facility] and pt stated he would call to order one. CM sat with him to facilitate this on his iPhone, however pt was unable to find credit cards. When ALEA checked back an hour later, pt had contacted [employer] and determined that he had only just enough to purchase the bed, and explained that he had an uncashed check at home that he could gonzalez to get food for the rest of the month. CM again expressed concerns for pt's safety and recommended he consider Medicaid Assisted Living option again. Pt stated intention to consider. ALEA arranged for [facility] RN/PT/OT and has also called to file a report with APS for investigation of self-neglect. Pt to get ride home from hospital with friend Laura. RN is concerned for pt's "forgetfulness". [employer] notified of pt's interest in Meals [employer] Wheels to start tomorrow. [employer] also notified to contact pt regarding movement toward skilled nursing care. Pt assisted in writing down a list of "To do's" to help him move forward in caring for himself including purchasing a bed and some furniture. Friend Laura committed to ordering mattress from [employer] over the phone when she comes to pick him up. D/C Plan: Home with [facility], [facility], [facility] Orantes and minimal support from friends Vern and Laura Date Signed: 05/26/2018 02:24 PM Electronically Signed By:Tyra Matthew
--- NOTE | 2018-05-26 14:26 | ASMTDCNOTE ---
Case Management Discharge Discharge Order Complete? Answers: Yes Patient to Obtain Answers: Other Notes: friend Laura Medications Transportation Arranged Answers: Other Notes: friend Laura Transport will Pick (Date 05/26/2018 12:00 AM & Time) Faxed Final Orders Answers: Yes Agency/Facility Transfer Answers: Yes Report Printed & Faxed to Receiving Agency Family Notified Answers: Yes Notes: friend Laura Discharge Comments Notes: See previous CM noted. D/C with [facility] and community resources Date Signed: 05/26/2018 02:26 PM Electronically Signed By:Tyra Matthew
--- NOTE | 2018-05-26 14:28 | ASDISCHSUM ---
Discharge Information Plan Status:Home with Home Health Medically Cleared to Leave:05/25/2018 Discharge Date:05/25/2018 D/C Disposition:Home Health Service [facility] D/C Disposition:Home, Routine, Self-Care Projected Discharge Date:05/26/2018 11:00 AM Transportation at D/C:Friend Discharge Delay Reason: Follow-Up Date:05/26/2018 11:00 AM Discharge Slot: Final Diagnosis:A fib Placement Information Referral Type:*Senior Living/SNF Referral ID:[id number] Provider Name: Address 1: Phone Number: Address 2: Fax Number: City: Selection Factors: State: Referral Type:*Home Health Care Services Referral ID:[id number] Provider Name:[facility] Address 1:[address] [facility] [address] Address 2: City:[place] Selection Factors: State:[place] Patient Contact Information Contact Name:MAXWELL Relationship:Friend Address:[address] Work Phone: City:[place] Alternate Phone: State/Zip Code:[place] [address] Email: Financial Information Financial Class:Medicare Primary Plan Desc:MEDICARE IP PART B ONLY Primary Plan Number:[id number] Secondary Plan Desc:[facility] Secondary Plan Number:[id number] Assessment Information [facility] CM Progress Note CM Note CM Note Notes: This CM received call from Renetta HOLLINGSWORTH, [employer] Cooper at Dr. Sanchez's office regarding patient's presentation to the ED, and concerns about patient's living situation. Chart reviewed, including CM notes from 04/29/18 and CM discharge summary from previous admission on 05/05/18. Patient was discharged from this hospital on 05/05 with [facility]. Per Renetta's message, patient appears to "failing" this discharge plan and is concerned that patient needs a higher level of care. Upon this review, patient has an admission order for further workup. I have LM with [facility] intake #[id number] (6:00 PM) to inform of admission. CM to follow with discharge planning Date Signed: 05/22/2018 06:05 PM Electronically Signed By:Sienna Keene RN LACE CHERIE Acuity / Level of Answers: Yes Care: Did the patient have an inpatient admission? Comorbidities - select Answers: Coronary Artery Disease all that apply Dementia Diabetes (uncontrolled or controlled) Moderate or severe liver or renal disease Other Notes: MS, afib, FTT, diabetic ulcer, hyperlipidemia, psy ch hx (ADHD) # of Emergency department Answers: 3-4 visits in the last 6 months Social determinants Answers: Lack of community resources and/or lack of social support (no pcp, lives alone, transportation, yung d) Score: 21 Date Signed: 05/26/2018 02:20 PM Electronically Signed By:Tyra Matthew [facility] CM Progress Note CM Note CM Note Notes: Reviewed chart. Per unit rounds and MD report, pt left [facility] over the summer and has been living in an apartment independently. There are concerns regarding pt's safety. The pt does not have any furniture in his apartment, no bed, no chair. The pt has a diabetic foot ulcer, and has not been followed for wound care. Pt was previously open with [facility] ([facility]), but refused services from the home care agency. Per multiple reports, pt failed his April discharge and is in need of additional services. CM will need to further investigate pt's living arrangements and resources. Per Dr. Gregg, pt needs assistance obtaining furniture and additional support. Pt will likely require SNF upon discharge. CM will continue to follow. Discharge Plan: To be determined Date Signed: 05/23/2018 06:25 PM Electronically Signed By:Yi Calderon RN [facility] CM Progress Note CM Note CM Note Notes: I spoke with patient about the concerns re: his living situation and discharge plan. Patient says that his furniture is in a storage unit and he "has not had time" to move it to his apartment. He says that he is going to use [employer] to move his things. He also says his friends Vern and Laura can help. When I asked him about refusing [facility] after his last admission, he said that this was not true and he would be happy for the help. He also said that he would go to rehab; however, he has a high deductible health insurance plan and would still be responsible for some of the cost of SNF until he spends about $4000 toward his deductible. Patient is to have a [employer]ATELYN/Cardio[employer] today. Discharge planning will continue. Case Management will follow. Date Signed: 05/25/2018 12:01 PM Electronically Signed By:Brittani Yeboah RN [facility] CM Progress Note CM Note CM Note Notes: Spoke with pt in the room, as pt is to discharge today and has no furniture in the home. Pt gave CM permission to contact his friend Vern who formerly was [employer] and states that pt is unable to follow-through on verbal commitments he makes, possibly due to ADD. Don states he has tried to help pt obtain furniture and give other support, however, pt is unable to follow through or manage his finances. Friend states he arranged for pt to move into terminal system operator care, however pt declined because "he doesn't want to be on medicaid and live on only $75/month". Don is no longer willing to be MDPOA due to pt's inability to follow-through on commitments. Therapies are recommending pt go to SNF and pt is agreeable, [facility] has accepted, however, pt will have to pay $4000 out of pocket toward [facility] deductible first and pt states he is unable to at this time. CM initiated reconsideration of plan to move to assisted living, however, pt states he has only been in apt for "two weeks" and hasn't had a chance to make that plan work and would like that opportunity. [facility] contacted and has accepted patient. ALEA explained to pt that on last d/c [facility] was arranged, but pt refused to comply with "home bound" requirement and thus was unable to receive services. Pt expressed understanding and agreed to order groceries for delivery and remain home bound during services. Pt is still driving and has his own car. Pt has belongings in a storage unit and is unsure if it includes furniture. Pt has name of moving company who can move the belongings, however, pt has not called to arrange it. ALEA told pt about inexpensive mattresses at [facility] and pt stated he would call to order one. CM sat with him to facilitate this on his iPhone, however pt was unable to find credit cards. When ALEA checked back an hour later, pt had contacted [employer] and determined that he had only just enough to purchase the bed, and explained that he had an uncashed check at home that he could [employer] to get food for the rest of the month. ALEA again expressed concerns for pt's safety and recommended he consider Medicaid Assisted Living option again. Pt stated intention to consider. ALEA arranged for [facility] RN/PT/OT and has also called to file a report with APS for investigation of self-neglect. Pt to get ride home from hospital with friend Laura. RN is concerned for pt's "forgetfulness". [employer] notified of pt's interest in [employer] Whe[employer] to start tomorrow. Deyvi Orantes also notified to contact pt regarding movement toward penitentiary care. Pt assisted in writing down a list of "To do's" to help him move forward in caring for himself including purchasing a bed and some furniture. Abbey Sanchez committed to ordering mattress from [employer] over the phone when she comes to pick him up. D/C Plan: Home with [facility], [facility], Deyvi Orantes and minimal support from friends Jessica Date Signed: 05/26/2018 02:24 PM Electronically Signed By:yTra Matthew Case Management Discharge Plan Note Case Management Discharge Discharge Order Complete? Answers: Yes Patient to Obtain Answers: Other Notes: abbey Sanchez Medications Transportation Arranged Answers: Other Notes: abbey Laura Transport will Pick (Date 05/26/2018 12:00 AM & Time) Faxed Final Orders Answers: Yes Agency/Facility Transfer Answers: Yes Report Printed & Faxed to Receiving Agency Family Notified Answers: Yes Notes: abbey Sanchez Discharge Comments Notes: See previous CM noted. D/C with [facility] and community resources Date Signed: 05/26/2018 02:26 PM Electronically Signed By:Tyra Matthew Intervention Information Intervention Type:*Incorrect Registration Date of Service:05/23/2018 07:29 AM Patient Type:Inpatient Staff Member:EDEL Abrams Kerry Hours: Discipline: Severity: Comment:
--- NOTE | 2018-05-26 17:28 | PDIAF ---
- Diagnosis Diagnosis: Rapid AFib, hypotension, chronic gait instability, cognitive decline Code Status: Full Code - Medication Management Discharge Medications: electronically signed and located in the Home Medication List. - Orders Services needed: Home Care, Registered Nurse Home Care Face to Face: I certify that this patient was under my care and that I had the required [id number] encounter meeting the encounter requirements on the discharge day. My findings support the fact that the patient is homebound as defined in Home Care Face to Face Continued: CMS Chapter 7 Medicare Benefits Manual 30.1.1 , The condition of the patient is such that there exists a normal inability to leave home and consequently, leaving home would require a considerable and taxing effort. Diet Recommendation: sodium restricted Diet Texture: Regular Texture Diet Additional Instructions: Make appointment at the wound care clinic and follow up with them for management of your foot ulcer You have an appointment at [facility] ([phone]) for next week with Dr. Forrest, June 01 at 10:00 am. Please arrive 15 minutes early. - Follow Up Care Current Providers and Referrals: HAWA LLOYD [Primary Care Provider] - Patient,NotPresent [Unknown] - As per Instructions
--- NOTE | 2018-05-27 13:55 | CPEKG ---
Test Reason : OPEN Blood Pressure : / mmHG Vent. Rate : 101 BPM Atrial Rate : 186 BPM P-R Int : 151 ms QRS Dur : 093 ms QT Int : 428 ms P-R-T Axes : 000 -21 000 degrees QTc Int : 555 ms Atrial fibrillation Anteroseptal infarct, old Confirmed by Gómez Bess ([id number]) on 05/27/2018 1:54:49 PM Referred By: Confirmed By:Gómez Bess
== END 2018-05-26 14:33 | disposition home health service (06) | DRG 316 ==
LOC: EDUNIT# → INTOOBSV 17:04 → F2W 18:10 → OBSVTOIN 05-24 16:21 → UNDODISIN 05-26 11:41
PROVIDERS: ADMIT Internal Medicine; ATTEND Internal Medicine
DX: I95.9 Hypotension, unspecified (principal); I48.2 Chronic atrial fibrillation; G25.81 Restless legs syndrome; J44.9 Chronic obstructive pulmonary disease, unspecified; G31.84 Mild cognitive impairment of uncertain or unknown etiology; E11.610 Type 2 diabetes mellitus with diabetic neuropathic arthropathy; E11.621 Type 2 diabetes mellitus with foot ulcer; L97.519 Non-pressure chronic ulcer of other part of right foot with unspecified severity; E86.0 Dehydration; I25.10 Atherosclerotic heart disease of native coronary artery without angina pectoris; Z91.14 Patient's other noncompliance with medication regimen; Z95.5 Presence of coronary angioplasty implant and graft; Z87.891 Personal history of nicotine dependence; Z99.81 Dependence on supplemental oxygen; Z79.01 Long term (current) use of anticoagulants; I25.2 Old myocardial infarction
CPT/HCPCS: 84484-PO; 97116-GP; 97162-GP; 97165-GO; 97530-GO; 97530-GP; 97535-GO; G0378; G8978-GP-CJ; G8979-GP-CI; G8987-GO-CL; G8988-GO-CH; J1160; J2704